=== PATIENT | female | born 1935 | race Caucasian/White ===

== ENCOUNTER 2017-01-27 05:24 | Inpatient (IN) | payer MEDICARE, OTHER ==
[2017-01-27] VITALS (23 sets, daily range): BP systolic 103–168; BP diastolic 58–86; PULSE 88–107; RESP 12–18; Ht 160 cm; Wt 81.2 kg
[~2017-01-27] VITALS: Ht 160 cm; Wt 81.2 kg
[~2017-01-27 05:24] MED LIST: BUPR150T6 PO; CEFAZOLIN 2 GM/50 ML (PMX) 50 ML IVPB ONE; LACTATED RINGER'S 1,000 ML IV* ONE; LEVO100T87 PO; LORA1TAB PO; METO25TA7 PO; NIFE60TA7 PO; PRAV40TA76 PO; RED RICE YEAST PO; [UNRECOGNIZED DRUG - OTHER] PO
[2017-01-27] MEDS ORDERED: SURGIFOAM POWDER 1 GM KIT ONE (06:35)
[2017-01-27] MEDS ORDERED: BUPIVACAINE 0.25% (MPF) 30 ML INJ ONE (06:35)
[2017-01-27] MEDS ORDERED: POLYMYXIN/BACITRACIN 1L IRRIG ONE (06:35)
[2017-01-27] MEDS ORDERED: CEFAZOLIN 1 GM INJ ONE ×2 (06:55→07:29)
[2017-01-27] MEDS ORDERED: HEPARIN 1000 UNITS/ML 10 ML INJ ONE (06:56)
[2017-01-27] MEDS ORDERED: CEPASTAT LOZENGE MT PRN (07:00)
[2017-01-27] MEDS ORDERED: ACETAMINOPHEN 325 MG TAB PO PRN (07:00)
[2017-01-27] MEDS ORDERED: BISACODYL 10 MG SUPP PR PRN (07:00)
[2017-01-27] MEDS ORDERED: ONDANSETRON 4 MG INJ IV PRN ×2 (07:00→12:00)
[2017-01-27] MEDS ORDERED: LIDOCAINE 1% (MDV) 20 ML INJ ONE (07:00)
[2017-01-27] MEDS ORDERED: HYDROmorphONE 1 MG/ML SYG IV PRN (07:00)
[2017-01-27] MEDS ORDERED: HYDROmorphONE 0.2 MG/ML PCA IV SCH (07:00)
[2017-01-27] MEDS ORDERED: CYCLOBENZAPRINE 10 MG TAB PO PRN (07:00)
[2017-01-27] MEDS ORDERED: DIPHENHYDRAMINE 25 MG CAP PO PRN (07:00)
[2017-01-27] MEDS ORDERED: PROPOFOL 200 MG INJ ONE (07:00)
[2017-01-27] MEDS ORDERED: DIPHENHYDRAMINE 50 MG INJ IV PRN ×2 (07:00→12:00)
[2017-01-27] MEDS ORDERED: ACETAMINOPHEN 1000 MG/100 ML IVPB ONE (07:00)
[2017-01-27] MEDS ORDERED: AL HYDROX/MG HYDROX/SIMETH 30 ML CUP PO PRN (07:00)
[2017-01-27] MEDS ORDERED: HYDROCODONE/APAP (10/325) TAB PO PRN (07:00)
[2017-01-27] MEDS ORDERED: ETOMIDATE 20 MG INJ ONE ×2 (07:00→07:07)
[2017-01-27] MEDS ORDERED: NALOXONE (0.4 MG/ML) INJ IV PRN (07:00)
--- NOTE | 2017-01-27 07:00 | HPN ---
Date/Time of Note Date/Time of Note DATE: 01/27/17 TIME: 07:00 Interval H&P Admission Note Pt. seen H&P reviewed: No system changes RUBINA KWOK MD Jan 27, 2017 07:00
[2017-01-27] MEDS ORDERED: ACET1TAB40 PO (07:36)
[2017-01-27] MEDS ORDERED: PHENYLephrine (100 MCG/ML) 5ML SYG ONE (07:45)
[2017-01-27] MEDS ORDERED: CEFAZOLIN 1 GM INJ ZFS ONE (08:07)
[2017-01-27] MEDS: THROMBIN 5000 UNIT VIAL ONE ×2 (08:07→10:12)
[2017-01-27] MEDS ORDERED: LIDOCAINE 2%/EPI MPF (SDV) 20 ML VIAL INJ ONE (08:07)
[2017-01-27] MEDS ORDERED: LABETALOL HCL 20MG INJ ONE (08:13)
[2017-01-27] MEDS ORDERED: DEXAMETHASONE 4 MG/ML 1 ML INJ ONE (08:21)
[2017-01-27] MEDS ORDERED: ONDANSETRON 4 MG INJ ONE (08:21)
--- NOTE | 2017-01-27 08:31 | RADRPT ---
PROCEDURE: XR Lumbar Spine. CLINICAL INDICATION: L2-3-4 LUMBAR DECOMPRESSION TECHNIQUE: A single lateral view of the lumbar spine was obtained. COMPARISON: No prior studies are available for comparison. FINDINGS: There is normal osseous mineralization. There is normal alignment. Posterior localizer pins are identified at the L2-3 and L5-S1 levels. There is severe degenerative disc disease at L5-S1 including disc space narrowing and endplate scler osis. There is also 7 mm of anterolisthesis of L5 with respect to S1. IMPRESSION: Posterior localizer pins are identified at the L2-3 and L5-S1 levels. Severe degenerative disc disease and 7 mm of anterolisthesis at L5-S1. RPTAT: EE Physician Bernardo Date Time Electronically viewed and signed by Physician Bernardo on 01/27/2017 08:31 /
--- NOTE | 2017-01-27 08:59 | RADRPT ---
PROCEDURE: XR Lumbar Spine. CLINICAL INDICATION: L2-3-4 LUMBAR DECOMPRESSION TECHNIQUE: A single lateral view of the lumbar spine was obtained. COMPARISON: No prior studies are available for comparison. FINDINGS: There is normal osseous mineralization. There is normal alignment. Posterior localizer pins are identified at the L3-4 and L4-5 levels with adjacent surgical packing m aterial. There is severe degenerative disc disease at L5-S1 including disc space narrowing and endplate scler osis as well as 7 mm of anterolisthesis of L5 with respect to S1. IMPRESSION: Posterior localizer pins are identified at the L3-4 and L4-5 levels. Severe degenerative disc disease and 7 mm of anterolisthesis at L5-S1. RPTAT: EE Physician Bernardo Date Time Electronically viewed and signed by Physician Bernardo on 01/27/2017 08:59 /
[2017-01-27] MEDS: DOCUSATE SODIUM 100 MG CAP PO SCH ×2 (09:00→20:06)
--- NOTE | 2017-01-27 09:12 | RADRPT ---
PROCEDURE: XR Lumbar Spine. CLINICAL INDICATION: L2-L4 DECOMPRESSION RM 4 O.R. TECHNIQUE: A single lateral view of the lumbar spine was obtained. COMPARISON: No prior studies are available for comparison. FINDINGS: There is normal osseous mineralization. There is normal alignment. Posterior localizer pins are identified at the L5 level. Severe degenerative disc disease and 7 mm of anterolisthesis of L5 with respect to S1 are again note d. IMPRESSION: Posterior localizer pains are identified at the L5 level. Severe degenerative disc disease and 7 mm of anterolisthesis at L5-S1. RPTAT: EE Physician Bernardo Date Time Electronically viewed and signed by Physician Bernardo on 01/27/2017 09:11 /
--- NOTE | 2017-01-27 11:09 | SIPON ---
Date/Time of Note Date/Time of Note DATE: 01/27/17 TIME: 11:08 Operative Report Preoperative Diagnosis lumbar stenosis Postoperative Diagnosis lumbar stenosis Operation/Procedure Performed L2-5 decompression Surgeon: RUBINA KWOK MD Co-Surgeon: JUAN CARLOS FELIZ PA-C Anesthesia Type: general Estimated Blood Loss: 250 - 300 ml's Specimens sp process Complications: no RUBINA KWOK MD Jan 27, 2017 11:09
[2017-01-27] MEDS ORDERED: SUGAMMADEX SODIUM 200 MG/2 ML VIAL IV ONE (11:17)
--- NOTE | 2017-01-27 11:38 | QN ---
Documentation Comment s/p lumbar decompression L2-5 patient seen in PACU arousable, comfortable moving all extremities LE and UE pulses palpable JUAN CARLOS FELIZ PA-C Jan 27, 2017 11:38
[2017-01-27] MEDS ORDERED: LABETALOL HCL 20MG INJ IV PRN (12:00)
[2017-01-27] MEDS ORDERED: MEPERIDINE 25 MG INJ IV PRN (12:00)
[2017-01-27] MEDS ORDERED: HYDROmorphONE (0.2 MG/ML) 10ML SYG IV PRN ×2 (12:00)
[2017-01-27] MEDS ORDERED: hydrALAzine 20 MG INJ IV PRN (12:00)
--- NOTE | 2017-01-27 13:04 | OPR ---
DATE OF OPERATION: 01/27/2017 PREOPERATIVE DIAGNOSES: 1. L2-3, L3-4, L4-5 stenosis. 2. Lumbosacral radiculopathy with neurogenic claudication. 3. L4-5 degenerative anterolisthesis. POSTOPERATIVE DIAGNOSES: 1. L2-3, L3-4, L4-5 stenosis. 2. Lumbosacral radiculopathy with neurogenic claudication. 3. L4-5 degenerative anterolisthesis. PROCEDURE: 1. Central decompressive laminectomy at L2-3, L3-4, L4-5 with decompression of L2, L3, L4, L5 nerve roots bilaterally. 2. Lateral localizing film x2. 3. Intraoperative neural monitoring (3 hours 15 minutes.) SURGEON: Juan Pimentel MD HOT PUNCH PRESS OPERATOR: Doris Hansen PA-C NEED FOR ANIMAL NURSE: assistant women's tennis coach was required for retraction of the neurovascular elements. OPERATIVE FINDINGS AT SURGERY: Neural monitoring at the start of the case revealed posterior tibial signal down 50 percent. This remained the same at the end. All nerve signals were normal at the start and at the end of the case. Signals from L2 to S1 were severely low bilaterally, close to 100 percent deficit. End of the case left L2, L3, L4, L5 was down 20 percent, left S1 remain low, right L2, L3, L4, L5, S1 down 30 percent. Visually good decompression was achieved, but no pulsations were seen in the thecal sac. ESTIMATED BLOOD LOSS: 300 mL with 150 mL returned via Cell Saver. DRAINS: One. SPECIMENS: Spinous process of L2, L3, L4, sent to pathology. COMPLICATIONS: None. ANESTHESIOLOGIST: Dr. Rendon. Type of anesthesia general. INDICATION FOR PROCEDURES: This is an 81-year-old female with lumbosacral radiculopathy and neurogenic claudication in the setting of severe stenosis. I recommended the above procedure. I did not recommend fusion. Preoperatively I discussed risks, benefits, alternatives, she understood, wished to proceed. I called the listhetic level L4-5 with the rudimentary L5-S1 disk level as there is a transitional segment. DESCRIPTION OF PROCEDURE: The patient was identified in the preoperative holding area, given Ancef antibiotics and taken to the operating room, where she was successfully placed under general anesthesia. Neural monitor leads were placed. Sequential compression devices were applied. Nina catheter was introduced. Neural monitoring was utilized during the procedure for 3 hours and 15 minutes to include SSEP, MEP, and EMG. This was performed by [employer] Start time was 8 a.m., closure time was 11:15 a.m. Patient was placed on the operating table in prone position on Ole frame. All bony prominences were padded. The back was prepped and draped in the usual sterile fashion. [place] were placed, lateral localizing film was obtained to confirm the correct levels. Next injected the skin with lidocaine and epinephrine. Incision was taken down through the dorsal fascia. I subperiosteally dissected the L2, L3 and L4 lamina. I then took lateral film again and confirmed the correct level. Next, I performed a central decompressive laminectomy at L2-3, L3-4 and L4-5 using a curette, Kerrison punches and rongeurs. I then decompressed the lateral recess bilaterally from L2 to L5 and then I decompressed the individual nerve roots throughout the intraspinal canal, and decompressed L2, L3, L4 and L5 bilaterally. It should be noted, there is a transitional segment and it is possible that the low segment was L5-S1, but I decompressed the lowest 3 mobile segments which were the stenotic segments based on the MRI. Once this was done, I irrigated the wound. Hemostasis achieved with bipolar cautery, Surgifoam and bone wax. Valsalva maneuver was performed and there was no leak of CSF. Blood was returned via Cell Saver. The wound was irrigated again. Retractors removed and I closed the deep fascia with number 1 Strata Fix suture. I then closed subcu tissue with 2-0 Vicryl stitch, 4-0 Monocryl closure then performed. Dermabond and sterile dressing was then applied. The patient was then awakened from anesthesia and taken to the recovery room in stable condition where an neurological examination will be performed. Lap, sponge instrument counts were normal. She will be admitted to [facility] for routine postoperative care to include pain control, antibiotics and physical therapy. Dictated By: Juan Pimentel MD /елена/rachid /Document#: [id number]
[2017-01-27] MEDS: D5W-0.45 NACL + KCL 20 MEQ 1,000 ML IV SCH ×3 (13:10→22:02)
[2017-01-27] MEDS: CEFAZOLIN 1 GM/50 ML (PMX) 50 ML IVPB SCH ×2 (16:41→22:02)
[2017-01-27] MEDS ORDERED: LORAZEPAM 1 MG TAB PO PRN (17:00)
--- NOTE | 2017-01-27 17:21 | CONS ---
Date/Time of Note Date/Time of Note DATE: 01/27/17 TIME: 17:04 Assessment/Plan Assessment/Plan Problems: (1) Aftercare following surgery Comment: S/P Central decompressive laminectomy at L2-3, L3-4, L4-5 with decompression of L2, L3, L4, L5 nerve roots bilaterally. Pain management via VP CARE MANAGEMENT pump at this time. Rehab and PT per Dr. Pimentel. (2) Mixed hyperlipidemia Status: Chronic Comment: continue statin (3) Hypothyroidism Status: Chronic Comment: continue levothyroxine (4) Anxiety disorder Status: Chronic Comment: continue benzodiazepine and bupoprion (5) Gastro-esophageal reflux disease without esophagitis Status: Chronic Comment: continue PPI (6) Essential (primary) hypertension Status: Chronic Comment: Decent control. Will resume antihypertensive agents. Additional Assessment/Plan Clinically stable after surgery. Consultation Date/Type/Reason Admit Date/Time Jan 27, 2017 at 05:24 Date of Consultation: Jan 27, 2017 Type of Consultation: Internal Medicine Reason for Consultation Post operative medical management of internal medicine issues. Referring Provider: RUBINA PIMENTEL MD Hx of Present Illness 81 year old woman with history of severe peripheral neuropathy from L2-3, L3-4, L4-5 stenosis, lumboosacral radiculopathy with neurogenic claudication and L4-5 degenerative anterolisthesis. She is currently s/p central decompressive laminectomy at L2-3, L3-4, L4-5 with decompression of L2, L3, L4, L5 nerve roots bilaterally. Complain of some moderate post operative pain. Constitutional: no complaints Eyes: no complaints ENT: no complaints Respiratory: no complaints Cardiovascular: no complaints Gastrointestinal: no complaints Musculoskeletal: neck pain, other Neurologic: no complaints Endocrine: no complaints Lymphatic: no complaints Psychological: no complaints Immunologic: no complaints Past Medical History Medical History: GERD, high cholesterol, hypertension, hypothyroid, other ( Aortic stenosis, Aortic regurgitaion atherosclerotic disease) Past Surgical History Past Surgical Hx: appendectomy (esophageal fundoplasty, hand surgery, hysterectomy, TKR), other Family History Significant Family History: no pertinent family hx Social History Alcohol Use: none Smoking Status: Former smoker Drug Use: none Other 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 Lives with adult children Exam/Review of Systems Vital Signs Vitals Vital Signs Date Time Temp Pulse Resp B/P Pulse Ox O2 Delivery O2 Flow Rate FiO2 9//17 14:43 97.8 94 18 152/74 100 01/27/17 12:39 Nasal Cannula 2.0 Exam Constitutional: alert, oriented, well developed Psych: no complaints Head: normocephalic Eyes: EOMI, PERRL, nl conjunctiva ENMT: nl external ears & nose, other (edentulous) Neck: supple Respiratory: clear to auscultation, normal air movement Cardiovascular: regular rate and rhythm, systolic murmur Gastrointestinal: soft Musculoskeletal: nl extremities to inspection Extremities: normal pulses Neurological: nl mental status, nl speech, nl strength Skin: nl turgor, rash or lesions Lymph: nl lymph nodes Medications Medications Current Medications Potassium Chloride/Dextrose/ Sod Cl (D5-1/2ns + KCl 20 Meq) 1,000 ml @ 100 mls/ hr Q10H IV Last administered on 01/27/17 13:10; Admin Dose 100 MLS/HR; Start at 07:00 Acetaminophen/ Hydrocodone Bitart ([place] (10/325)) 1 tab Q4H PRN PO PAIN LEVEL 1-5; Start 01/27/17 at 07:00 Acetaminophen/ Hydrocodone Bitart ([place] (10/325)) 2 tab Q4H PRN PO PAIN LEVEL 6-10; Start 01/27/17 at 07:00 Hydromorphone HCl 0.2 mg 0.2 mg Q1H PRN IV BREAKTHROUGH PAIN; Start 01/27/17 at 07:00 Cefazolin Sodium (Ancef 1 Gm/50 ml (Pmx)) 50 ml @ 100 mls/hr Q8H IVPB Last administered on 01/27/17 16:41; Admin Dose 100 MLS/HR; Start 01/27/17 at 15:00; Stop 01/28/17 at 07:29 Ondansetron HCl (Zofran Inj) 4 mg Q6H PRN IV NAUSEA AND/OR VOMITING Last administered on 01/27/17 12:06; Admin Dose 4 MG; Start 01/27/17 at 07:00 Bisacodyl (Dulcolax Supp) 10 mg DAILY PRN PA CONSTIPATION; Start 01/27/17 at 07: 00 Docusate Sodium (Colace) 100 mg BID PO ; Start 01/27/17 at 09:00 Pantoprazole (Protonix Iv) 40 mg DAILY@06 IV ; Start 01/28/17 at 06:00 Al Hydrox/Mg Hydrox/Simethicone (Mag-Al Plus) 15 ml Q6H PRN PO CONSTIPATION/ DYSPEPSIA; Start 01/27/17 at 07:00 Acetaminophen (Tylenol Tab) 650 mg Q4H PRN PO RICHTER OR TEMP GREATER THAN 101.3F; Start 01/27/17 at 07:00 Cyclobenzaprine HCl (Flexeril) 5 mg TID PRN PO MUSCLE SPASMS; Start 01/27/17 at 07:00 Phenol (Cepastat Lozenge) 1 lozenge PRN PRN MT SORE THROAT; Start 01/27/17 at 07 :00 Diphenhydramine HCl (Benadryl) 25 mg Q6H PRN PO ITCHING; Start 01/27/17 at 07:00 Diphenhydramine HCl (Benadryl) 25 mg Q6H PRN IV ITCHING; Start 01/27/17 at 07:00 Naloxone HCl (Narcan) 0.2 mg Q2M PRN IV RR 8 BREATHS/MIN OR LESS; Start at 07:00 Hydromorphone HCl (Dilaudid VP CARE MANAGEMENT) VP CARE MANAGEMENT to be started in PACU Q4PCA IV Last administered on 01/27/17t 12:24; Admin Dose 6 MG; Start 01/27/17 at 07:00 Miscellaneous Information 1. Hold VP CARE MANAGEMENT at 1,000... VP CARE MANAGEMENT IV ; Start 01/27/17 at 07: 00 MIKHAIL PICHARDO MD Jan 27, 2017 17:14
[2017-01-27] MEDS: ATORVASTATIN 10 MG TAB PO SCH (20:06)
[2017-01-28] VITALS (7 sets, daily range): BP systolic 94–132; BP diastolic 50–66; PULSE 75–89; RESP 18–20
[2017-01-28 05:34] LABS: BASOPHILS % 0.2 % (0.0-2.0); EOSINOPHILS % 0.4 % (0.0-7.0); HEMATOCRIT 29.6 % (37.0-47.0); HEMOGLOBIN 9.4 g/dl (12.0-16.0); LYMPHOCYTES # 1.2 10^3/ul (0.8-2.9); LYMPHOCYTES % 10.6 % (15.0-51.0); MEAN CORPUSCULAR HEMOGLOBIN 28.7 pg (29.0-33.0); MEAN CORPUSCULAR HGB CONC 31.8 g/dl (32.0-37.0); MEAN CORPUSCULAR VOLUME 90.2 fl (82.0-101.0); MEAN PLATELET VOLUME 10.4 fl (7.4-10.4); MONOCYTES % 9.1 % (0.0-11.0); NEUTROPHILS % 79.3 % (39.0-77.0); PLATELET COUNT 235 10^3/UL (140-415); RED BLOOD COUNT 3.28 10^6/ul (4.20-5.40); RED CELL DISTRIBUTION WIDTH 14.6 % (11.5-14.5); WHITE BLOOD COUNT 11.2 10^3/ul (4.8-10.8)
[2017-01-28] MEDS: PANTOPRAZOLE (EC) 40 MG TAB PO SCH (05:40)
[2017-01-28] MEDS: CEFAZOLIN 1 GM/50 ML (PMX) 50 ML IVPB SCH (05:40)
[2017-01-28] MEDS: D5W-0.45 NACL + KCL 20 MEQ 1,000 ML IV SCH ×3 (05:46→22:20)
[2017-01-28] MEDS ORDERED: PANTOPRAZOLE 40 MG INJ IV SCH (06:00)
[2017-01-28] MEDS: LEVOTHYROXINE 100 MCG TAB PO SCH (06:01)
[2017-01-28 06:14] LABS: CALCIUM 8.4 mg/dl (8.4-10.2); CREATININE 0.67 mg/dl (0.44-1.00); MAGNESIUM 1.8 mg/dl (1.7-2.5)
[2017-01-28] MEDS: DOCUSATE SODIUM 100 MG CAP PO SCH ×2 (08:13→20:08)
[2017-01-28] MEDS: BUPROPION (XL) 150 MG TAB PO SCH (08:13)
[2017-01-28] MEDS: METOPROLOL (XL) 25 MG TAB PO SCH (08:14)
--- NOTE | 2017-01-28 12:53 | PN ---
Date/Time of Note Date/Time of Note DATE: 01/28/17 TIME: 12:52 Assessment/Plan Lines/Catheters IV Catheter Type (from Nrsg): Saline Lock Nina in Place (from Nrsg): Yes Assessment/Plan Assessment/Plan s/p lumbar decompression cont routine care Subjective 24 Hr Interval Summary doing well. improved leg pain Exam/Review of Systems Vital Signs Vitals Vital Signs Date Time Temp Pulse Resp B/P Pulse Ox O2 Delivery O2 Flow Rate FiO2 01/28/17 09:00 16 01/28/17 08:15 Nasal Cannula 2.0 01/28/17 08:03 98.1 78 132/66 99 Intake and Output 01/27/17 01/27/17 01/28/17 15:00 23:00 07:00 Intake Total 2125 ml 750 ml 1450 ml Output Total 1200 ml 160 ml 1710 ml Balance 925 ml 590 ml -260 ml Exam Free Text/Dictation nvi Results Result Diagram: 01/28/17 0439 01/28/17 0439 RUBINA KWOK MD Jan 28, 2017 12:53
[2017-01-28 14:23] LABS: HEMATOCRIT 29.3 % (37.0-47.0); HEMOGLOBIN 9.7 g/dl (12.0-16.0)
--- NOTE | 2017-01-28 16:59 | CONS ---
Date/Time of Note Date/Time of Note DATE: 01/28/17 TIME: 16:52 Assessment/Plan Assessment/Plan Problems: (1) Aftercare following surgery Comment: Doing well postop day #1. Continue physical therapy. Suspect patient will require long-term rehab. 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 Comment: Hopeful to improve after surgical intervention (5) Hypothyroidism Status: Chronic Comment: Continue levothyroxine (6) Mixed hyperlipidemia Status: Chronic Comment: Continue statin (7) Major depressive disorder, recurrent, moderate Status: Chronic Comment: Continue antidepressant therapy (8) Essential (primary) hypertension Status: Chronic Comment: Continue BP regimen (9) Gastro-esophageal reflux disease without esophagitis Status: Chronic Comment: Continue PPI and add Tums as needed (10) Type 2 diabetes mellitus with other specified complication Status: Chronic Comment: Diet-controlled. Will monitor Consultation Date/Type/Reason Admit Date/Time Jan 27, 2017 at 05:24 Initial Consult Date 01/27/17 Type of Consultation: Internal Medicine Reason for Consultation Medical management Referring Provider: RUBINA KWOK MD 24 HR Interval Summary Constitutional: improved, no complaints Detailed Summary Respiratory: no complaints Cardiovascular: no complaints Gastrointestinal: pain (Wants Tums) Genitourinary: no complaints Musculoskeletal: back pain (Hurts but not as bad as she thought it would. Ambulating with physical therapy.) Neurologic: no complaints Exam/Review of Systems Vital Signs Vitals VS - Last 72 Hours, by Label Date Time Temp Pulse Resp B/P Pulse Ox O2 Delivery O2 Flow Rate FiO2 01/28/17 16:00 104/55 01/28/17 14:31 98.2 78 20 94/50 99 01/28/17 14:10 75 94/50 01/28/17 13:00 16 01/28/17 09:00 16 01/28/17 08:15 16 01/28/17 08:15 Nasal Cannula 2.0 01/28/17 08:03 98.1 78 20 132/66 99 01/28/17 05:20 98.1 89 18 125/59 96 Nasal Cannula 2.0 01/28/17 00:49 98.1 93 19 123/62 93 01/27/17 21:02 Nasal Cannula 2.0 01/27/17 19:10 98.0 97 18 128/58 94 01/27/17 16:00 98.0 92 16 140/70 98 Nasal Cannula 2.0 01/27/17 15:00 98.2 96 16 150/71 99 Nasal Cannula 2.0 01/27/17 14:43 97.8 94 18 152/74 100 01/27/17 14:30 98.0 98 16 168/83 100 Nasal Cannula 2.0 01/27/17 14:00 98.1 107 16 137/82 99 Nasal Cannula 2.0 01/27/17 13:45 98.0 89 16 139/65 98 Nasal Cannula 2.0 01/27/17 13:30 Nasal Cannula 2.0 01/27/17 13:30 97.9 89 16 142/75 98 Nasal Cannula 2.0 01/27/17 13:15 98.0 96 16 143/70 99 Nasal Cannula 2.0 01/27/17 13:00 98.0 99 16 147/65 100 Nasal Cannula 2.0 01/27/17 12:39 92 14 149/80 99 Nasal Cannula 2.0 01/27/17 12:34 90 12 148/82 99 Nasal Cannula 2.0 01/27/17 12:29 94 14 151/78 98 Nasal Cannula 2.0 01/27/17 12:24 22 01/27/17 12:24 90 14 150/76 99 Nasal Cannula 2.0 01/27/17 12:19 88 14 146/72 98 Nasal Cannula 2.0 01/27/17 12:14 90 14 142/72 95 Nasal Cannula 2.0 01/27/17 12:09 88 14 143/69 95 Nasal Cannula 2.0 01/27/17 12:04 88 14 147/72 95 Nasal Cannula 2.0 01/27/17 11:59 90 14 150/69 95 Nasal Cannula 2.0 01/27/17 11:54 92 12 149/78 95 Nasal Cannula 2.0 01/27/17 11:49 97.8 01/27/17 11:49 92 12 103/81 96 Nasal Cannula 2.0 01/27/17 11:44 98.3 90 12 136/81 100 Nasal Cannula 2.0 01/27/17 06:35 98.4 97 16 108/86 97 Room Air Vital Signs Date Time Temp Pulse Resp B/P Pulse Ox O2 Delivery O2 Flow Rate FiO2 01/28/17 16:00 104/55 01/28/17 14:31 98.2 78 20 99 01/28/17 08:15 Nasal Cannula 2.0 Intake and Output 01/27/17 01/27/17 01/28/17 15:00 23:00 07:00 Intake Total 2125 ml 750 ml 1450 ml Output Total 1200 ml 160 ml 1710 ml Balance 925 ml 590 ml -260 ml Exam Constitutional: alert, frail, obese, oriented Psych: nl mood/affect, no complaints Respiratory: clear to auscultation, normal air movement Cardiovascular: nl pulses, regular rate and rhythm, No edema, No murmurs/extra sounds, No rub Gastrointestinal: bowel sounds, nl liver, spleen, non-tender, soft, No mass, No rebound or guarding Musculoskeletal: nl extremities to inspection Extremities: normal pulses, No clubbing, No cyanosis, No edema Neurological: SPECIAL INVESTIGATION UNIT INVESTIGATOR II-XII intact, nl mental status, nl speech, nl strength Results Result Diagram: 01/28/17 1413 01/28/17 0439 Results 24 hrs Laboratory Tests Test 01/28/17 04:39 01/28/17 14:13 White Blood Count 11.2 H Red Blood Count 3.28 L Hemoglobin 9.4 L 9.7 L Hematocrit 29.6 L 29.3 L Mean Corpuscular Volume 90.2 Mean Corpuscular Hemoglobin 28.7 L Mean Corpuscular Hemoglobin Concent 31.8 L Red Cell Distribution Width 14.6 H Platelet Count 235 Mean Platelet Volume 10.4 Neutrophils % 79.3 H Lymphocytes % 10.6 L Monocytes % 9.1 Eosinophils % 0.4 Basophils % 0.2 Nucleated Red Blood Cells % 0.0 Neutrophils # (Manual) 8.9 H Lymphocytes # 1.2 Monocytes # 1.0 H Eosinophils # 0.0 Basophils # 0.0 Nucleated Red Blood Cells # 0.0 Sodium Level 140 Potassium Level 4.0 Chloride Level 108 Carbon Dioxide Level 28 Anion Gap 8 Blood Urea Nitrogen 11 Creatinine 0.67 Glucose Level 120 Calcium Level 8.4 Magnesium Level 1.8 Medications Medications Current Medications Potassium Chloride/Dextrose/ Sod Cl (D5-1/2ns + KCl 20 Meq) 1,000 ml @ 100 mls/ hr Q10H IV Last administered on 01/28/17 05:46; Admin Dose 100 MLS/HR; Start at 07:00 Acetaminophen/ Hydrocodone Bitart ([place] (10/325)) 1 tab Q4H PRN PO PAIN LEVEL 1-5; Start 01/27/17 at 07:00 Acetaminophen/ Hydrocodone Bitart ([place] (10/325)) 2 tab Q4H PRN PO PAIN LEVEL 6-10; Start 01/27/17 at 07:00 Hydromorphone HCl (Dilaudid) 0.2 mg Q1H PRN IV BREAKTHROUGH PAIN; Start at 07:00 Ondansetron HCl (Zofran Inj) 4 mg Q6H PRN IV NAUSEA AND/OR VOMITING Last administered on 01/27/17 12:06; Admin Dose 4 MG; Start 01/27/17 at 07:00 Bisacodyl (Dulcolax Supp) 10 mg DAILY PRN CO CONSTIPATION; Start 01/27/17 at 07: 00 Docusate Sodium (Colace) 100 mg BID PO Last administered on 01/28/17 08:13; Admin Dose 100 MG; Start 01/27/17 at 09:00 Al Hydrox/Mg Hydrox/Simethicone (Mag-Al Plus) 15 ml Q6H PRN PO CONSTIPATION/ DYSPEPSIA; Start 01/27/17 at 07:00 Acetaminophen (Tylenol Tab) 650 mg Q4H PRN PO RICHTER OR TEMP GREATER THAN 101.3F; Start 01/27/17 at 07:00 Cyclobenzaprine HCl (Flexeril) 5 mg TID PRN PO MUSCLE SPASMS; Start 01/27/17 at 07:00 Phenol (Cepastat Lozenge) 1 lozenge PRN PRN MT SORE THROAT; Start 01/27/17 at 07 :00 Diphenhydramine HCl (Benadryl) 25 mg Q6H PRN PO ITCHING; Start 01/27/17 at 07:00 Diphenhydramine HCl (Benadryl) 25 mg Q6H PRN IV ITCHING; Start 01/27/17 at 07:00 Naloxone HCl (Narcan) 0.2 mg Q2M PRN IV RR 8 BREATHS/MIN OR LESS; Start at 07:00 Hydromorphone HCl (Dilaudid FACSIMILE OPERATOR) FACSIMILE OPERATOR to be started in PACU Q4PCA IV Last administered on 01/27/17 12:24; Admin Dose 6 MG; Start 01/27/17 at 07:00 Miscellaneous Information 1. Hold FACSIMILE OPERATOR at 1,000... FACSIMILE OPERATOR IV ; Start 01/27/17 at 07: 00 Bupropion HCl (Wellbutrin Xl) 150 mg DAILY PO Last administered on 01/28/17 08: 13; Admin Dose 150 MG; Start 01/28/17 at 09:00 Lorazepam (Ativan) 2 mg BID PRN PO ANXIETY; Start 01/27/17 at 17:00 Metoprolol Succinate (Toprol Xl) 25 mg DAILY PO Last administered on 01/28/17 08:14; Admin Dose 25 MG; Start 01/28/17 at 09:00 Atorvastatin Calcium (Lipitor) 10 mg DAILY@21 PO Last administered on 01/27/17 20:06; Admin Dose 10 MG; Start 01/27/17 at 21:00 Pantoprazole (Protonix Tab) 40 mg DAILY@06 PO Last administered on 01/28/17 05: 40; Admin Dose 40 MG; Start 01/28/17 at 06:00; Status Future hold WALTER MELISSA MD Jan 28, 2017 16:59
[2017-01-28] MEDS ORDERED: CALCIUM CARBONATE 500 MG CHEW TAB PO PRN (17:00)
[2017-01-28] MEDS: ATORVASTATIN 10 MG TAB PO SCH (20:08)
[2017-01-29 02:00] VITALS: BP 126/60; RESP 18
[2017-01-29] MEDS: PANTOPRAZOLE (EC) 40 MG TAB PO SCH (05:23)
[2017-01-29 05:31] LABS: BASOPHILS % 0.3 % (0.0-2.0); EOSINOPHILS # 0.2 10^3/ul (0.0-0.5); EOSINOPHILS % 1.8 % (0.0-7.0); HEMATOCRIT 30.2 % (37.0-47.0); HEMOGLOBIN 9.6 g/dl (12.0-16.0); LYMPHOCYTES # 1.1 10^3/ul (0.8-2.9); LYMPHOCYTES % 10.4 % (15.0-51.0); MEAN CORPUSCULAR HEMOGLOBIN 29.4 pg (29.0-33.0); MEAN CORPUSCULAR HGB CONC 31.8 g/dl (32.0-37.0); MEAN CORPUSCULAR VOLUME 92.4 fl (82.0-101.0); MEAN PLATELET VOLUME 10.7 fl (7.4-10.4); MONOCYTE # 1.2 10^3/ul (0.3-0.9); MONOCYTES % 11.1 % (0.0-11.0); PLATELET COUNT 225 10^3/UL (140-415); RED BLOOD COUNT 3.27 10^6/ul (4.20-5.40); RED CELL DISTRIBUTION WIDTH 14.6 % (11.5-14.5); WHITE BLOOD COUNT 10.9 10^3/ul (4.8-10.8)
[2017-01-29 05:55] LABS: CALCIUM 8.6 mg/dl (8.4-10.2); CREATININE 0.6 mg/dl (0.44-1.00); MAGNESIUM 1.8 mg/dl (1.7-2.5); POTASSIUM 4.3 mmol/L (3.5-5.1)
[2017-01-29] MEDS: LEVOTHYROXINE 100 MCG TAB PO SCH (06:02)
[2017-01-29] MEDS: D5W-0.45 NACL + KCL 20 MEQ 1,000 ML IV SCH ×3 (06:02→19:00)
--- NOTE | 2017-01-29 07:55 | PN ---
Date/Time of Note Date/Time of Note DATE: 01/29/17 TIME: 07:54 Assessment/Plan Lines/Catheters IV Catheter Type (from Nrs): Peripheral IV Lambert in Place (from Nrs): Yes Assessment/Plan Assessment/Plan s/p lumbar decompression d/c manager data lambert and drain acute rehab pending Subjective 24 Hr Interval Summary improving Exam/Review of Systems Vital Signs Vitals Vital Signs Date Time Temp Pulse Resp B/P Pulse Ox O2 Delivery O2 Flow Rate FiO2 01/29/17 05:00 18 01/29/17 02:00 98.4 86 126/60 93 01/28/17 08:15 Nasal Cannula 2.0 Intake and Output 01/28/17 01/28/17 01/29/17 15:00 23:00 07:00 Intake Total 1880 ml 2150 ml Output Total 1025 ml 1870 ml Balance 855 ml 280 ml Exam Free Text/Dictation nvi Results Result Diagram: 01/29/17 0444 01/29/17 0444 RUBINA KWOK MD Jan 29, 2017 07:55
[2017-01-29 07:59] VITALS: BP 129/61; RESP 16
[2017-01-29] MEDS: BUPROPION (XL) 150 MG TAB PO SCH (09:49)
[2017-01-29] MEDS: HYDROCODONE/APAP (10/325) TAB PO PRN ×2 (09:49→19:07)
[2017-01-29] MEDS: DOCUSATE SODIUM 100 MG CAP PO SCH ×2 (09:50→20:24)
[2017-01-29] MEDS: METOPROLOL (XL) 25 MG TAB PO SCH (09:50)
[2017-01-29 14:45] VITALS: BP 129/68; RESP 18
--- NOTE | 2017-01-29 18:30 | CONS ---
Date/Time of Note Date/Time of Note DATE: 01/29/17 TIME: 18:27 Assessment/Plan Assessment/Plan Problems: (1) Essential (primary) hypertension Status: Chronic Comment: BP controlled, continue current medical regimen (2) Mixed hyperlipidemia Status: Chronic Comment: Continue statin (3) Hypothyroidism Status: Chronic Comment: Continue levothyroxine Qualifiers: Hypothyroidism type: acquired Qualified Code: E03.9 - Acquired hypothyroidism (4) Gastro-esophageal reflux disease without esophagitis Status: Chronic Comment: Continue PPI (5) Abnormality of gait and mobility Status: Chronic Comment: Hopefully will resolve following spinal surgery (6) History of falling Status: Chronic Comment: Hopefully will resolve following spinal surgery (7) Aftercare following surgery Comment: Doing fair on postop day #2. Expect upcoming transfer to acute rehab unit once able to urinate. Consultation Date/Type/Reason Admit Date/Time Jan 27, 2017 at 05:24 Initial Consult Date 01/27/17 Type of Consultation: Internal Medicine Reason for Consultation Medical management Referring Provider: RUBINA KWOK MD 24 HR Interval Summary Constitutional: no complaints Detailed Summary Respiratory: no complaints Cardiovascular: no complaints Gastrointestinal: no complaints Genitourinary: other (Unable to pass urine) Musculoskeletal: back pain (Able to ambulate but only a few steps around her room and to the commode) Neurologic: no complaints Exam/Review of Systems Vital Signs Vitals VS - Last 72 Hours, by Label Date Time Temp Pulse Resp B/P Pulse Ox O2 Delivery O2 Flow Rate FiO2 01/29/17 14:45 98.4 85 18 129/68 97 01/29/17 07:59 99.1 87 16 129/61 94 01/29/17 05:00 18 01/29/17 02:00 98.4 86 18 126/60 93 01/29/17 01:00 18 01/28/17 21:00 18 01/28/17 20:58 98.0 81 18 112/56 97 01/28/17 16:58 16 01/28/17 16:00 104/55 01/28/17 14:31 98.2 78 20 94/50 99 01/28/17 14:10 75 94/50 01/28/17 13:00 16 01/28/17 09:00 16 01/28/17 08:15 16 01/28/17 08:15 Nasal Cannula 2.0 01/28/17 08:03 98.1 78 20 132/66 99 01/28/17 05:20 98.1 89 18 125/59 96 Nasal Cannula 2.0 01/28/17 00:49 98.1 93 19 123/62 93 01/27/17 21:02 Nasal Cannula 2.0 01/27/17 19:10 98.0 97 18 128/58 94 01/27/17 16:00 98.0 92 16 140/70 98 Nasal Cannula 2.0 01/27/17 15:00 98.2 96 16 150/71 99 Nasal Cannula 2.0 01/27/17 14:43 97.8 94 18 152/74 100 01/27/17 14:30 98.0 98 16 168/83 100 Nasal Cannula 2.0 01/27/17 14:00 98.1 107 16 137/82 99 Nasal Cannula 2.0 01/27/17 13:45 98.0 89 16 139/65 98 Nasal Cannula 2.0 01/27/17 13:30 Nasal Cannula 2.0 01/27/17 13:30 97.9 89 16 142/75 98 Nasal Cannula 2.0 01/27/17 13:15 98.0 96 16 143/70 99 Nasal Cannula 2.0 01/27/17 13:00 98.0 99 16 147/65 100 Nasal Cannula 2.0 01/27/17 12:39 92 14 149/80 99 Nasal Cannula 2.0 01/27/17 12:34 90 12 148/82 99 Nasal Cannula 2.0 01/27/17 12:29 94 14 151/78 98 Nasal Cannula 2.0 01/27/17 12:24 22 01/27/17 12:24 90 14 150/76 99 Nasal Cannula 2.0 01/27/17 12:19 88 14 146/72 98 Nasal Cannula 2.0 01/27/17 12:14 90 14 142/72 95 Nasal Cannula 2.0 01/27/17 12:09 88 14 143/69 95 Nasal Cannula 2.0 01/27/17 12:04 88 14 147/72 95 Nasal Cannula 2.0 01/27/17 11:59 90 14 150/69 95 Nasal Cannula 2.0 01/27/17 11:54 92 12 149/78 95 Nasal Cannula 2.0 01/27/17 11:49 97.8 01/27/17 11:49 92 12 103/81 96 Nasal Cannula 2.0 01/27/17 11:44 98.3 90 12 136/81 100 Nasal Cannula 2.0 01/27/17 06:35 98.4 97 16 108/86 97 Room Air Vital Signs Date Time Temp Pulse Resp B/P Pulse Ox O2 Delivery O2 Flow Rate FiO2 01/29/17 14:45 98.4 85 18 129/68 97 01/28/17 08:15 Nasal Cannula 2.0 Intake and Output 01/28/17 01/28/17 01/29/17 15:00 23:00 07:00 Intake Total 1880 ml 2150 ml Output Total 1025 ml 1870 ml Balance 855 ml 280 ml Exam Constitutional: alert, obese, oriented Psych: nl mood/affect, no complaints Respiratory: clear to auscultation, normal air movement Cardiovascular: nl pulses, regular rate and rhythm, No edema, No murmurs/extra sounds, No rub Gastrointestinal: bowel sounds, nl liver, spleen, non-tender, soft, No mass, No rebound or guarding Musculoskeletal: nl extremities to inspection Extremities: normal pulses, No clubbing, No cyanosis, No edema Neurological: STATION INSPECTOR II-XII intact, nl mental status, nl speech, nl strength Results Result Diagram: 01/29/1744301/29/17443 Results 24 hrs Laboratory Tests Test 01/29/17 04:44 White Blood Count 10.9 H Red Blood Count 3.27 L Hemoglobin 9.6 L Hematocrit 30.2 L Mean Corpuscular Volume 92.4 Mean Corpuscular Hemoglobin 29.4 Mean Corpuscular Hemoglobin Concent 31.8 L Red Cell Distribution Width 14.6 H Platelet Count 225 Mean Platelet Volume 10.7 H Neutrophils % 76.0 Lymphocytes % 10.4 L Monocytes % 11.1 H Eosinophils % 1.8 Basophils % 0.3 Nucleated Red Blood Cells % 0.0 Neutrophils # (Manual) 8.3 H Lymphocytes # 1.1 Monocytes # 1.2 H Eosinophils # 0.2 Basophils # 0.0 Nucleated Red Blood Cells # 0.0 Sodium Level 138 Potassium Level 4.3 Chloride Level 106 Carbon Dioxide Level 30 Anion Gap 6 L Blood Urea Nitrogen 10 Creatinine 0.60 Glucose Level 124 Calcium Level 8.6 Magnesium Level 1.8 Medications Medications Current Medications Potassium Chloride/Dextrose/ Sod Cl (D5-1/2ns + KCl 20 Meq) 1,000 ml @ 100 mls/ hr Q10H IV Last administered on 01/29/17 06:02; Admin Dose 100 MLS/HR; Start at 07:00 Acetaminophen/ Hydrocodone Bitart ([place] (10/325)) 1 tab Q4H PRN PO PAIN LEVEL 1-5 Last administered on 01/29/17 09:49; Admin Dose 1 TAB; Start 01/27/17 at 07: 00 Acetaminophen/ Hydrocodone Bitart ([place] (10/325)) 2 tab Q4H PRN PO PAIN LEVEL 6-10; Start 01/27/17 at 07:00 Hydromorphone HCl (Dilaudid) 0.2 mg Q1H PRN IV BREAKTHROUGH PAIN; Start at 07:00 Ondansetron HCl (Zofran Inj) 4 mg Q6H PRN IV NAUSEA AND/OR VOMITING Last administered on 01/27/17 12:06; Admin Dose 4 MG; Start 01/27/17 at 07:00 Bisacodyl (Dulcolax Supp) 10 mg DAILY PRN [place] CONSTIPATION; Start 01/27/17 at 07: 00 Docusate Sodium (Colace) 100 mg BID PO Last administered on 01/29/17 09:50; Admin Dose 100 MG; Start 01/27/17 at 09:00 Al Hydrox/Mg Hydrox/Simethicone (Mag-Al Plus) 15 ml Q6H PRN PO CONSTIPATION/ DYSPEPSIA; Start 01/27/17 at 07:00 Acetaminophen (Tylenol Tab) 650 mg Q4H PRN PO RICHTER OR TEMP GREATER THAN 101.3F; Start 01/27/17 at 07:00 Cyclobenzaprine HCl (Flexeril) 5 mg TID PRN PO MUSCLE SPASMS; Start 01/27/17 at 07:00 Phenol (Cepastat Lozenge) 1 lozenge PRN PRN [place] SORE THROAT; Start 01/27/17 at 07 :00 Diphenhydramine HCl (Benadryl) 25 mg Q6H PRN PO ITCHING; Start 01/27/17 at 07:00 Diphenhydramine HCl (Benadryl) 25 mg Q6H PRN IV ITCHING; Start 01/27/17 at 07:00 Naloxone HCl (Narcan) 0.2 mg Q2M PRN IV RR 8 BREATHS/MIN OR LESS; Start at 07:00 Hydromorphone HCl (Dilaudid ROUGHER MACHINE OPERATOR) ROUGHER MACHINE OPERATOR to be started in PACU Q4PCA IV Last administered on 01/27/17 12:24; Admin Dose 6 MG; Start 01/27/17 at 07:00 Miscellaneous Information 1. Hold ROUGHER MACHINE OPERATOR at 1,000... ROUGHER MACHINE OPERATOR IV ; Start 01/27/17 at 07: 00 Bupropion HCl (Wellbutrin Xl) 150 mg DAILY PO Last administered on 01/29/17 09: 49; Admin Dose 150 MG; Start 01/28/17 at 09:00 Lorazepam (Ativan) 2 mg BID PRN PO ANXIETY; Start 01/27/17 at 17:00 Metoprolol Succinate (Toprol Xl) 25 mg DAILY PO Last administered on 01/29/17 09:50; Admin Dose 25 MG; Start 01/28/17 at 09:00 Atorvastatin Calcium (Lipitor) 10 mg DAILY@21 PO Last administered on 01/28/17 20:08; Admin Dose 10 MG; Start 01/27/17 at 21:00 Pantoprazole (Protonix Tab) 40 mg DAILY@06 PO Last administered on 01/29/17 05: 23; Admin Dose 40 MG; Start 01/28/17 at 06:00; Status Future hold Calcium Carbonate (Tums) 500 mg QID PRN PO HEARTBURN Last administered on 17:21; Admin Dose 500 MG; Start 01/28/17 at 17:00 WALTER MELISSA MD Jan 29, 2017 18:30
[2017-01-29 19:05] VITALS: BP 143/66; RESP 18
[2017-01-29] MEDS: ATORVASTATIN 10 MG TAB PO SCH (20:24)
[2017-01-30] MEDS: HYDROCODONE/APAP (10/325) TAB PO PRN ×3 (00:41→15:02)
[2017-01-30 02:05] VITALS: BP 130/59; RESP 18
[2017-01-30] MEDS: D5W-0.45 NACL + KCL 20 MEQ 1,000 ML IV SCH ×2 (05:00→15:00)
[2017-01-30 05:07] LABS: BASOPHILS % 0.3 % (0.0-2.0); EOSINOPHILS # 0.2 10^3/ul (0.0-0.5); EOSINOPHILS % 2.4 % (0.0-7.0); HEMOGLOBIN 8.9 g/dl (12.0-16.0); LYMPHOCYTES % 10.1 % (15.0-51.0); MEAN CORPUSCULAR HEMOGLOBIN 28.7 pg (29.0-33.0); MEAN CORPUSCULAR HGB CONC 31.8 g/dl (32.0-37.0); MEAN CORPUSCULAR VOLUME 90.3 fl (82.0-101.0); MEAN PLATELET VOLUME 10.5 fl (7.4-10.4); MONOCYTE # 1.1 10^3/ul (0.3-0.9); MONOCYTES % 11.4 % (0.0-11.0); NEUTROPHILS % 75.3 % (39.0-77.0); PLATELET COUNT 208 10^3/UL (140-415); RED CELL DISTRIBUTION WIDTH 14.6 % (11.5-14.5); WHITE BLOOD COUNT 9.4 10^3/ul (4.8-10.8)
[2017-01-30 06:01] LABS: CALCIUM 8.7 mg/dl (8.4-10.2); CREATININE 0.6 mg/dl (0.44-1.00); MAGNESIUM 1.9 mg/dl (1.7-2.5); POTASSIUM 3.9 mmol/L (3.5-5.1)
[2017-01-30] MEDS: LEVOTHYROXINE 100 MCG TAB PO SCH (06:01)
[2017-01-30] MEDS: PANTOPRAZOLE (EC) 40 MG TAB PO SCH (06:01)
[2017-01-30 08:08] VITALS: BP 133/65; RESP 18
[2017-01-30] MEDS: DOCUSATE SODIUM 100 MG CAP PO SCH (09:03)
[2017-01-30] MEDS: BUPROPION (XL) 150 MG TAB PO SCH (09:03)
[2017-01-30] MEDS: METOPROLOL (XL) 25 MG TAB PO SCH (09:03)
[2017-01-30 15:07] VITALS: BP 140/70; RESP 18
== END 2017-01-30 17:50 | DRG 515 ==
LOC: REC 05:24 → MS1 12:56
PROVIDERS: ADMIT Specialist; ATTEND Specialist
PROC: 01NB0ZZ Release Lumbar Nerve, Open Approach (ICD-10-PCS; principal; 2017-01-27 07:00)
DX: M48.06 Spinal stenosis, lumbar region (principal); G95.19 Other vascular myelopathies; E11.42 Type 2 diabetes mellitus with diabetic polyneuropathy; F33.1 Major depressive disorder, recurrent, moderate; M43.16 Spondylolisthesis, lumbar region; M54.17 Radiculopathy, lumbosacral region; I35.2 Nonrheumatic aortic (valve) stenosis with insufficiency; E78.2 Mixed hyperlipidemia; F41.9 Anxiety disorder, unspecified; K21.9 Gastro-esophageal reflux disease without esophagitis; E03.9 Hypothyroidism, unspecified; I10 Essential (primary) hypertension; Z79.82 Long term (current) use of aspirin; Z96.643 Presence of artificial hip joint, bilateral; Z96.653 Presence of artificial knee joint, bilateral; Z87.891 Personal history of nicotine dependence; Z91.81 History of falling
CPT/HCPCS: 72020; 80048; 83735; 85014; 85018; 85025; 86850; 86900; 86901; 86920; 86999; 87086; 88304; 88311; 97116; 97161; 97530; C9113; J0131; J0690; J1100; J1170; J1200; J1644; J2175; J2370; J2405; J3010; J3480; J7120

== ENCOUNTER 2017-01-30 17:25 | Inpatient (IN) | payer MEDICARE, OTHER ==
[~2017-01-30] VITALS: Ht 158.8 cm; Wt 81.0 kg
[2017-01-30 08:00] VITALS: BP 129/60; RESP 18
[~2017-01-30 17:25] MED LIST changes: +ACET1TAB40 PO; -CEFAZOLIN 2 GM/50 ML (PMX) 50 ML IVPB ONE; -LACTATED RINGER'S 1,000 ML IV* ONE
--- NOTE | 2017-01-30 18:21 | PN ---
Date/Time of Note Date/Time of Note DATE: 01/30/17 TIME: 18:17 Assessment/Plan VTE Prophylaxis VTE Prophylaxis Intervention: ambulation, SCD's Assessment/Plan Problems: (1) Hypothyroidism Status: Chronic Comment: Continue levothyroxine (2) Mixed hyperlipidemia Status: Chronic Comment: Continue statin (3) Essential (primary) hypertension Status: Chronic Comment: Continue current blood pressure regimen (4) Gastro-esophageal reflux disease without esophagitis Status: Chronic Comment: Continue PPI (5) History of falling Status: Chronic Comment: Improved following surgery. Initiate rehab. (6) Abnormality of gait and mobility Status: Chronic Comment: Should improve following surgery. Initiate rehab. (7) Aftercare following surgery Status: Acute Comment: Begin intensive physical therapy in the acute rehab unit Subjective 24 Hr Interval Summary Constitutional: improved, no complaints Respiratory: no complaints Cardiovascular: no complaints Gastrointestinal: no complaints Genitourinary: no complaints Musculoskeletal: back pain (Still able get up and ambulate a few steps with physical therapy) Neurologic: no complaints Exam/Review of Systems Exam Constitutional: alert, frail, obese, oriented Psych: nl mood/affect, no complaints Respiratory: clear to auscultation, normal air movement Cardiovascular: nl pulses, regular rate and rhythm, No edema, No murmurs/extra sounds, No rub Gastrointestinal: bowel sounds, nl liver, spleen, non-tender, soft, No mass, No rebound or guarding Musculoskeletal: nl extremities to inspection Extremities: normal pulses, No clubbing, No cyanosis, No edema Neurological: ZINC PLATE GRAINER II-XII intact, nl mental status, nl speech, nl strength WALTER MELISSA MD Jan 30, 2017 18:21
[2017-01-30 18:24] VITALS: BP 124/75; PULSE 82; RESP 18
[2017-01-30] MEDS ORDERED: HYDROCODONE/APAP (10/325) TAB PO PRN (19:43)
[2017-01-30] MEDS ORDERED: BISACODYL 10 MG SUPP PR PRN (19:43)
[2017-01-30] MEDS ORDERED: AL HYDROX/MG HYDROX/SIMETH 30 ML CUP PO PRN (19:43)
[2017-01-30] MEDS ORDERED: DIPHENHYDRAMINE 25 MG CAP PO PRN (19:43)
[2017-01-30] MEDS ORDERED: NALOXONE (0.4 MG/ML) INJ IV PRN (19:43)
[2017-01-30] MEDS ORDERED: CEPASTAT LOZENGE MT PRN (19:43)
[2017-01-30] MEDS ORDERED: CALCIUM CARBONATE 500 MG CHEW TAB PO PRN (19:43)
[2017-01-30] MEDS ORDERED: DIPHENHYDRAMINE 50 MG INJ IV PRN (19:43)
[2017-01-30] MEDS ORDERED: ONDANSETRON 4 MG INJ IV PRN (19:43)
[2017-01-30] MEDS ORDERED: ACETAMINOPHEN 325 MG TAB PO PRN (19:43)
[2017-01-30 19:45] VITALS: Ht 158.8 cm; Wt 81.0 kg
[2017-01-30] MEDS: LORAZEPAM 1 MG TAB PO PRN (21:59)
[2017-01-30] MEDS: DOCUSATE SODIUM 100 MG CAP PO SCH (21:59)
[2017-01-30] MEDS: ATORVASTATIN 10 MG TAB PO SCH (21:59)
[2017-01-31 02:00] VITALS: BP 124/62; RESP 18
[2017-01-31] MEDS: HYDROCODONE/APAP (10/325) TAB PO PRN ×2 (06:43→20:59)
[2017-01-31] MEDS: PANTOPRAZOLE (EC) 40 MG TAB PO SCH (06:43)
[2017-01-31] MEDS: LEVOTHYROXINE 100 MCG TAB PO SCH (06:43)
[2017-01-31 07:10] LABS: BASOPHILS % 0.4 % (0.0-2.0); EOSINOPHILS # 0.2 10^3/ul (0.0-0.5); HEMOGLOBIN 9.2 g/dl (12.0-16.0); LYMPHOCYTES # 0.8 10^3/ul (0.8-2.9); LYMPHOCYTES % 9.9 % (15.0-51.0); MEAN CORPUSCULAR HEMOGLOBIN 28.9 pg (29.0-33.0); MEAN CORPUSCULAR HGB CONC 31.7 g/dl (32.0-37.0); MEAN CORPUSCULAR VOLUME 91.2 fl (82.0-101.0); MEAN PLATELET VOLUME 11.5 fl (7.4-10.4); MONOCYTE # 0.7 10^3/ul (0.3-0.9); MONOCYTES % 9.3 % (0.0-11.0); PLATELET COUNT 238 10^3/UL (140-415); RED BLOOD COUNT 3.18 10^6/ul (4.20-5.40); RED CELL DISTRIBUTION WIDTH 14.4 % (11.5-14.5); WHITE BLOOD COUNT 7.7 10^3/ul (4.8-10.8)
[2017-01-31 07:45] LABS: ALBUMIN 2.8 g/dl (3.3-4.9); ALBUMIN/GLOBULIN RATIO 1.03; BILIRUBIN,INDIRECT 0.4 mg/dl (0-1.1); BILIRUBIN,TOTAL 0.4 mg/dl (0.2-1.3); CALCIUM 8.6 mg/dl (8.4-10.2); CREATININE 0.53 mg/dl (0.44-1.00); POTASSIUM 4.3 mmol/L (3.5-5.1); TOTAL PROTEIN 5.5 g/dl (6.1-8.1)
[2017-01-31 08:00] VITALS: BP 119/58; RESP 18
[2017-01-31] MEDS: BUPROPION (XL) 150 MG TAB PO SCH (09:46)
[2017-01-31] MEDS: METOPROLOL (XL) 25 MG TAB PO SCH (09:47)
[2017-01-31] MEDS: DOCUSATE SODIUM 100 MG CAP PO SCH ×2 (09:47→21:00)
[2017-01-31] MEDS: CYCLOBENZAPRINE 10 MG TAB PO PRN (09:47)
[2017-01-31] MEDS ORDERED: MAGNESIUM HYDROXIDE 30ML CUP PO PRN (10:30)
[2017-01-31] MEDS ORDERED: LACTULOSE 30ML CUP PO PRN (10:30)
--- NOTE | 2017-01-31 13:27 | CONS ---
DATE OF ADMISSION: 01/30/2017 DATE OF CONSULTATION: 01/31/2017 Rehabilitation Post Admission Physician Evaluation REHABILITATION IMPAIRMENT CATEGORY: Lumbar spinal radiculopathy and anterolisthesis status post decompressive laminectomy. ACTIVE COMORBIDITIES: 1. Hyperlipidemia. 2. Acute pain syndrome. 3. Anxiety. 4. Hypothyroidism. 5. Gastroesophageal reflux disease. 6. Hypertension. 7. 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 8. History of total knee replacements bilaterally. 9. Impairments in self-care and mobility. HISTORY OF PRESENT ILLNESS: Patient is a very pleasant, 81-year- old female with a history of multiple medical comorbidities, who had been noting severe increasing radiating low back pain despite conservative measures. Patient underwent a decompressive lumbar laminectomy by Dr. Pimentel on 01/27/2017. Patient's hospital course has been notable for significant pain, constipation, and impairments in self-care and mobility as compared to baseline. The patient has been cleared to transfer to the rehabilitation unit for comprehensive interdisciplinary rehab care. Functional history prior to recent events: She was independent in self-care tasks and mobility. Currently patient requires moderate assist for self-care and mobility tasks. I have reviewed the preadmission screen and patient's current functional status is consistent with the preadmission screen. SOCIAL HISTORY: Patient lives at home and hopes to return there upon discharge. PAST MEDICAL HISTORY: 1. Low back pain as above. 2. Hyperlipidemia. 3. Anxiety. 4. Hypothyroidism. 5. Gastroesophageal reflux disease. 6. Hypertension. 7. 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 8. History of esophageal fundoplasty. 9. History of hysterectomy. MEDICATION: 1. [place] p.r.n. 2. Lipitor 10 mg p.o. daily. 3. Wellbutrin 150 p.o. daily 4. Tums p.r.n. 5. Flexeril 5 mg p.o. t.i.d. p.r.n. 6. Colace 100 mg b.i.d. 7. Dilaudid p.r.n. 8. Synthroid 100 mcg p.o. q.a.m. 9. Ativan p.r.n. 10. Toprol-XL 25 mg p.o. daily. 11. Protonix 40 mg p.o. daily. ALLERGIES: PATIENT WITH NO KNOWN DRUG ALLERGIES. PHYSICAL EXAMINATION: VITAL SIGNS: Patient is currently afebrile with stable vital signs. HEENT: Extraocular motion intact. Oropharynx clear. NECK: Supple. LUNGS: Clear anteriorly. HEART: S1, S2. ABDOMEN: Soft, nontender. Positive bowel sounds. NEUROLOGIC: She is awake and alert, and oriented to person and hospital. She will follow simple one-step commands. She demonstrates antigravity strength in the right upper extremity. She has decreased forward flexion and abduction in the left shoulder. She demonstrates dorsiflexion and plantar flexion, bilateral lower extremities. PLAN: The patient has been admitted for comprehensive interdisciplinary acute rehab and is anticipated to tolerate 3 hours of daily therapy in divided doses for at least 5 out of 7 days a week. The treatment plan will include: 1. Physical therapy to focus on bed mobility, transfers, and household ambulation with the goal of having patient reach standby assist level. 2. Occupational therapy to focus on hygiene, grooming, dressing, bathing and toileting activities with the goal of having patient reach standby assist level. 3. Rehabilitation nursing for carry over therapeutic interventions with the goal of continent to bowel and bladder, and the goal of pain adequately managed on oral medications. REHABILITATION BARRIER: Pain. INTERVENTION FOR BARRIER: Comprehensive interdisciplinary approach. ESTIMATED LENGTH OF STAY: 14 days. DISPOSITION GOAL: Home. I acknowledge I performed a full physical examination on this patient within 24 hours of admission to the rehabilitation unit and believe the patient is a good candidate for comprehensive interdisciplinary rehab care and is anticipated to make reasonable goals in a reasonable period of time as outlined above. Dictated By: Marta Angel MD /[email or web address]/ruben /Document#: [id number]
[2017-01-31 19:31] LABS: ADD UMIC NO; UR ASCORBIC ACID NEGATIVE (NEGATIVE); UR BILIRUBIN (Dip) NEGATIVE (NEGATIVE); UR BLOOD (Dip) NEGATIVE (NEGATIVE); UR CLARITY CLEAR (CLEAR); UR COLOR YELLOW (YELLOW); UR GLUCOSE (Dip) NEGATIVE (NEGATIVE); UR KETONES (Dip) NEGATIVE (NEGATIVE); UR LEUKOCYTE ESTERASE (Dip) NEGATIVE Leu/ul (NEGATIVE); UR NITRITE (Dip) NEGATIVE (NEGATIVE); UR TOTAL PROTEIN (Dip) NEGATIVE (NEGATIVE); UR UROBILINOGEN (Dip) NEGATIVE (NEGATIVE)
[2017-01-31 20:00] VITALS: BP 116/58; RESP 18
[2017-01-31] MEDS: ATORVASTATIN 10 MG TAB PO SCH (20:59)
[2017-01-31] MEDS: SENNA TAB PO SCH (21:00)
--- NOTE | 2017-01-31 23:47 | PN ---
Date/Time of Note Date/Time of Note DATE: 01/31/17 TIME: 1500 Late entry Assessment/Plan VTE Prophylaxis VTE Prophylaxis Intervention: ambulation Lines/Catheters Central line still needed: No Urinary Cath still in place: No Assessment/Plan Problems: (1) Aftercare following surgery Status: Acute (2) Type 2 diabetes mellitus with other specified complication Status: Chronic (3) Essential (primary) hypertension Status: Chronic (4) Mixed hyperlipidemia Status: Chronic (5) Hypothyroidism Status: Chronic (6) Anxiety disorder Status: Chronic (7) Sciatica Status: Chronic Assessment/Plan Patient doing well post operatively. Physical Therapy per the team in the ARU Subjective 24 Hr Interval Summary Free Text/Dictation Doing well. No complaints other than a little fatigued after physical therapy. Exam/Review of Systems Vital Signs Vitals Vital Signs Date Time Temp Pulse Resp B/P Pulse Ox O2 Delivery O2 Flow Rate FiO2 01/31/17 20:00 97.8 76 18 116/58 98 01/30/17 18:24 Room Air Intake and Output 01/30/17 01/30/17 01/31/17 15:00 23:00 07:00 Intake Total 660 ml Balance 660 ml Exam Constitutional: alert, oriented, well developed Psych: no complaints Head: normocephalic Eyes: EOMI, PERRL, nl conjunctiva Neck: non-tender, supple Respiratory: clear to auscultation, normal air movement Cardiovascular: regular rate and rhythm Gastrointestinal: soft Musculoskeletal: nl extremities to inspection Extremities: normal pulses, other (bilateral feet in heel protectors) Results Labs reviewed Result Diagram: 01/31/17 0649 01/31/17 0649 Results 24 hrs Laboratory Tests Test 01/31/17 06:49 01/31/17 07:00 White Blood Count 7.7 Red Blood Count 3.18 L Hemoglobin 9.2 L Hematocrit 29.0 L Mean Corpuscular Volume 91.2 Mean Corpuscular Hemoglobin 28.9 L Mean Corpuscular Hemoglobin Concent 31.7 L Red Cell Distribution Width 14.4 Platelet Count 238 Mean Platelet Volume 11.5 H Neutrophils % 77.0 Lymphocytes % 9.9 L Monocytes % 9.3 Eosinophils % 3.0 Basophils % 0.4 Nucleated Red Blood Cells % 0.0 Neutrophils # (Manual) 5.9 Lymphocytes # 0.8 Monocytes # 0.7 Eosinophils # 0.2 Basophils # 0.0 Nucleated Red Blood Cells # 0.0 Sodium Level 136 Potassium Level 4.3 Chloride Level 104 Carbon Dioxide Level 28 Anion Gap 8 Blood Urea Nitrogen 9 Creatinine 0.53 Glucose Level 117 Calcium Level 8.6 Total Bilirubin 0.4 Direct Bilirubin 0.00 Indirect Bilirubin 0.4 Aspartate Amino Transf (AST/SGOT) 15 Alanine Aminotransferase (ALT/SGPT) 20 Alkaline Phosphatase 61 Total Protein 5.5 L Albumin 2.8 L Globulin 2.70 Albumin/Globulin Ratio 1.03 Urine Color YELLOW Urine Clarity CLEAR Urine pH 7.0 Urine Specific [place] 1.010 Urine Ketones NEGATIVE Urine Nitrite NEGATIVE Urine Bilirubin NEGATIVE Urine Urobilinogen NEGATIVE Urine Leukocyte Esterase NEGATIVE Urine Hemoglobin NEGATIVE Urine Glucose NEGATIVE Urine Total Protein NEGATIVE Medications Medications Current Medications Acetaminophen/ Hydrocodone Bitart ([place] (10325)) 1 tab Q4H PRN PO PAIN LEVEL 1-5 Last administered on 01/31/17 11:43; Admin Dose 1 TAB; Start 01/30/17 at 19: 43 Acetaminophen/ Hydrocodone Bitart ([place] (325)) 2 tab Q4H PRN PO PAIN LEVEL 6-10 Last administered on 01/31/17 20:59; Admin Dose 2 TAB; Start 01/30/17 at 19: 43 Hydromorphone HCl (Dilaudid) 0.2 mg Q1H PRN IV BREAKTHROUGH PAIN; Start at 19:43 Ondansetron HCl (Zofran Inj) 4 mg Q6H PRN IV NAUSEA AND/OR VOMITING; Start 01/30 at 19:43 Bisacodyl (Dulcolax Supp) 10 mg DAILY PRN [place] CONSTIPATION; Start 01/30/17 at 19: 43 Docusate Sodium (Colace) 100 mg BID PO Last administered on 01/31/17 09:47; Admin Dose 100 MG; Start 01/30/17 at 19:43 Al Hydrox/Mg Hydrox/Simethicone (Mag-Al Plus) 15 ml Q6H PRN PO CONSTIPATION/ DYSPEPSIA; Start 01/30/17 at 19:43 Acetaminophen (Tylenol Tab) 650 mg Q4H PRN PO RICHTER OR TEMP GREATER THAN 101.3F; Start 01/30/17 at 19:43 Cyclobenzaprine HCl (Flexeril) 5 mg TID PRN PO MUSCLE SPASMS Last administered on 01/31/17 09:47; Admin Dose 5 MG; Start 01/30/17 at 19:43 Phenol (Cepastat Lozenge) 1 lozenge PRN PRN [place] SORE THROAT; Start 01/30/17 at 19 :43 Diphenhydramine HCl (Benadryl) 25 mg Q6H PRN PO ITCHING; Start 01/30/17 at 19:43 Diphenhydramine HCl (Benadryl) 25 mg Q6H PRN IV ITCHING; Start 01/30/17 at 19:43 Naloxone HCl (Narcan) 0.2 mg Q2M PRN IV RR 8 BREATHS/MIN OR LESS; Start at 19:43 Bupropion HCl (Wellbutrin Xl) 150 mg DAILY PO Last administered on 01/31/17 09: 46; Admin Dose 150 MG; Start 01/30/17 at 19:43 Lorazepam (Ativan) 2 mg BID PRN PO ANXIETY Last administered on 01/30/17 21:59 ; Admin Dose 2 MG; Start 01/30/17 at 19:43 Metoprolol Succinate (Toprol Xl) 25 mg DAILY PO Last administered on 01/31/17 09:47; Admin Dose 25 MG; Start 01/30/17 at 19:43 Atorvastatin Calcium (Lipitor) 10 mg DAILY@21 PO Last administered on 01/31/17 20:59; Admin Dose 10 MG; Start 01/30/17 at 19:43 Pantoprazole (Protonix Tab) 40 mg DAILY@06 PO Last administered on 01/31/17 06: 43; Admin Dose 40 MG; Start 01/30/17 at 19:43 Calcium Carbonate (Tums) 500 mg QID PRN PO HEARTBURN; Start 01/30/17 at 19:43 Senna (Senokot) 1 tab DAILY@21 PO ; Start 01/31/17 at 21:00 Lactulose (Enulose) 20 gm DAILY PRN PO CONSTIPATION Last administered on 11:43; Admin Dose 20 GM; Start 01/31/17 at 10:30 Magnesium Hydroxide (Milk Of Mag) 30 ml DAILY PRN PO CONSTIPATION; Start at 10:30 MIKHAIL PICHARDO MD Jan 31, 2017 23:47
[2017-02-01] MEDS: LEVOTHYROXINE 100 MCG TAB PO SCH (06:41)
[2017-02-01] MEDS: PANTOPRAZOLE (EC) 40 MG TAB PO SCH (06:41)
[2017-02-01] MEDS: HYDROCODONE/APAP (10/325) TAB PO PRN ×2 (06:44→20:45)
[2017-02-01] MEDS: HYDROmorphONE 1 MG/ML SYG IV PRN ×2 (08:23→09:45)
[2017-02-01] MEDS: METOPROLOL (XL) 25 MG TAB PO SCH (09:00)
[2017-02-01] MEDS: DOCUSATE SODIUM 100 MG CAP PO SCH ×2 (09:58→10:02)
[2017-02-01] MEDS: BUPROPION (XL) 150 MG TAB PO SCH (09:58)
[2017-02-01] MEDS: LORAZEPAM 1 MG TAB PO PRN (10:00)
--- NOTE | 2017-02-01 16:46 | PN ---
Date/Time of Note Date/Time of Note DATE: 02/01/17 TIME: 16:41 Assessment/Plan VTE Prophylaxis VTE Prophylaxis Intervention: ambulation Lines/Catheters Urinary Cath still in place: No Assessment/Plan Problems: (1) Low back pain Status: Chronic (2) Sciatica Status: Chronic (3) Hypothyroidism Status: Chronic (4) Mixed hyperlipidemia Status: Chronic (5) Essential (primary) hypertension Status: Chronic (6) Gastro-esophageal reflux disease without esophagitis Status: Chronic (7) Abnormality of gait and mobility Status: Chronic (8) Type 2 diabetes mellitus with other specified complication Status: Chronic (9) Aftercare following surgery Status: Acute Assessment/Plan Clinically stable after surgery. Continue PT per Acute Rehab Unit Subjective 24 Hr Interval Summary Free Text/Dictation No complaints today Exam/Review of Systems Vital Signs Vitals Vital Signs Date Time Temp Pulse Resp B/P Pulse Ox O2 Delivery O2 Flow Rate FiO2 01/31/17 20:00 97.8 76 18 116/58 98 01/30/17 18:24 Room Air Intake and Output 01/31/17 01/31/17 02/01/17 15:00 23:00 07:00 Intake Total 800 ml 520 ml 700 ml Balance 800 ml 520 ml 700 ml Exam Constitutional: alert, oriented, well developed Neck: supple Respiratory: clear to auscultation Cardiovascular: regular rate and rhythm Gastrointestinal: soft Extremities: normal pulses Results Result Diagram: 01/31/17 0649 01/31/17 0649 Medications Medications Current Medications Acetaminophen/ Hydrocodone Bitart ([place] (10/325)) 1 tab Q4H PRN PO PAIN LEVEL 1-5 Last administered on 01/31/17 11:43; Admin Dose 1 TAB; Start 01/30/17 at 19: 43 Acetaminophen/ Hydrocodone Bitart ([place] (10/325)) 2 tab Q4H PRN PO PAIN LEVEL 6-10 Last administered on 02/01/17 06:44; Admin Dose 2 TAB; Start 01/30/17 at 19 :43 Hydromorphone HCl (Dilaudid) 0.2 mg Q1H PRN IV BREAKTHROUGH PAIN Last administered on 02/01/17 09:45; Admin Dose 0.2 MG; Start 01/30/17 at 19:43 Ondansetron HCl (Zofran Inj) 4 mg Q6H PRN IV NAUSEA AND/OR VOMITING; Start 01/30 at 19:43 Bisacodyl (Dulcolax Supp) 10 mg DAILY PRN [place] CONSTIPATION; Start 01/30/17 at 19: 43 Docusate Sodium (Colace) 100 mg BID PO Last administered on 02/01/17 10:02; Admin Dose 100 MG; Start 01/30/17 at 19:43 Al Hydrox/Mg Hydrox/Simethicone (Mag-Al Plus) 15 ml Q6H PRN PO CONSTIPATION/ DYSPEPSIA; Start 01/30/17 at 19:43 Acetaminophen (Tylenol Tab) 650 mg Q4H PRN PO RICHTER OR TEMP GREATER THAN 101.3F; Start 01/30/17 at 19:43 Cyclobenzaprine HCl (Flexeril) 5 mg TID PRN PO MUSCLE SPASMS Last administered on 01/31/17 09:47; Admin Dose 5 MG; Start 01/30/17 at 19:43 Phenol (Cepastat Lozenge) 1 lozenge PRN PRN MT SORE THROAT; Start 01/30/17 at 19 :43 Diphenhydramine HCl (Benadryl) 25 mg Q6H PRN PO ITCHING; Start 01/30/17 at 19:43 Diphenhydramine HCl (Benadryl) 25 mg Q6H PRN IV ITCHING; Start 01/30/17 at 19:43 Naloxone HCl (Narcan) 0.2 mg Q2M PRN IV RR 8 BREATHS/MIN OR LESS; Start at 19:43 Bupropion HCl (Wellbutrin Xl) 150 mg DAILY PO Last administered on 02/01/17 09 :58; Admin Dose 150 MG; Start 01/30/17 at 19:43 Lorazepam (Ativan) 2 mg BID PRN PO ANXIETY Last administered on 02/01/17 10:00 ; Admin Dose 2 MG; Start 01/30/17 at 19:43 Metoprolol Succinate (Toprol Xl) 25 mg DAILY PO Last administered on 01/31/17 09:47; Admin Dose 25 MG; Start 01/30/17 at 19:43 Atorvastatin Calcium (Lipitor) 10 mg DAILY@21 PO Last administered on 01/31/17 20:59; Admin Dose 10 MG; Start 01/30/17 at 19:43 Pantoprazole (Protonix Tab) 40 mg DAILY@06 PO Last administered on 02/01/17 06 :41; Admin Dose 40 MG; Start 01/30/17 at 19:43 Calcium Carbonate (Tums) 500 mg QID PRN PO HEARTBURN; Start 01/30/17 at 19:43 Senna (Senokot) 1 tab DAILY@21 PO ; Start 01/31/17 at 21:00 Lactulose (Enulose) 20 gm DAILY PRN PO CONSTIPATION Last administered on 11:43; Admin Dose 20 GM; Start 01/31/17 at 10:30 Magnesium Hydroxide (Milk Of Mag) 30 ml DAILY PRN PO CONSTIPATION; Start at 10:30 MIKHAIL PICHARDO MD Feb 01, 2017 16:46
[2017-02-01 20:34] VITALS: BP 124/60; RESP 18
[2017-02-01] MEDS: ATORVASTATIN 10 MG TAB PO SCH (20:44)
[2017-02-01] MEDS: SENNA TAB PO SCH (21:00)
[2017-02-02 02:00] VITALS: BP 116/64; RESP 18
[2017-02-02] MEDS: PANTOPRAZOLE (EC) 40 MG TAB PO SCH (06:08)
[2017-02-02] MEDS: LEVOTHYROXINE 100 MCG TAB PO SCH (06:08)
[2017-02-02 07:30] VITALS: BP 139/65; RESP 20
[2017-02-02] MEDS: DOCUSATE SODIUM 100 MG CAP PO SCH ×2 (08:47→21:00)
[2017-02-02] MEDS: BUPROPION (XL) 150 MG TAB PO SCH (08:47)
[2017-02-02] MEDS: HYDROCODONE/APAP (10/325) TAB PO PRN ×3 (08:47→20:07)
[2017-02-02] MEDS: METOPROLOL (XL) 25 MG TAB PO SCH (08:48)
[2017-02-02] MEDS: CYCLOBENZAPRINE 10 MG TAB PO PRN (08:48)
--- NOTE | 2017-02-02 12:15 | CONS ---
Date/Time of Note Date/Time of Note DATE: 02/02/17 TIME: 12:14 Consult Date/Type/Reason Admit Date/Time Jan 30, 2017 at 18:00 Initial Consult Date Objective Vital Signs Date Time Temp Pulse Resp B/P Pulse Ox O2 Delivery O2 Flow Rate FiO2 02/02/17 07:30 97.7 89 20 139/65 95 01/30/17 18:24 Room Air Intake and Output 02/01/17 02/01/17 02/02/17 15:00 23:00 07:00 Intake Total 120 ml 120 ml 120 ml Balance 120 ml 120 ml 120 ml INTERDISCIPLINARY TEAM CONFERENCE BOWEL- Cont BLADDER-Cont SKIN- intact OT- DRESSING-min/mod BATHING-min/mod TOILETING-min/mod PT- BED MOBILITY-min TRANSFERS-min AMBULATION-min 90 feet A/P- Interdisciplinary team conference held today. Please see interdisciplinary sheet. Working toward d.c. on 02/10 with post discharge follow up of physical therapy, occupational therapy. Results/Medications Result Diagram: 01/31/17 0649 01/31/17 0649 Medications Current Medications Acetaminophen/ Hydrocodone Bitart ([place] (10/325)) 1 tab Q4H PRN PO PAIN LEVEL 1-5 Last administered on 01/31/17 11:43; Admin Dose 1 TAB; Start 01/30/17 at 19: 43 Acetaminophen/ Hydrocodone Bitart ([place] (10/325)) 2 tab Q4H PRN PO PAIN LEVEL 6-10 Last administered on 02/02/17 08:47; Admin Dose 2 TAB; Start 01/30/17 at 19 :43 Hydromorphone HCl (Dilaudid) 0.2 mg Q1H PRN IV BREAKTHROUGH PAIN Last administered on 02/01/17 09:45; Admin Dose 0.2 MG; Start 01/30/17 at 19:43 Ondansetron HCl (Zofran Inj) 4 mg Q6H PRN IV NAUSEA AND/OR VOMITING; Start 01/30 at 19:43 Bisacodyl (Dulcolax Supp) 10 mg DAILY PRN [place] CONSTIPATION; Start 01/30/17 at 19: 43 Docusate Sodium (Colace) 100 mg BID PO Last administered on 02/02/17 08:47; Admin Dose 100 MG; Start 01/30/17 at 19:43 Al Hydrox/Mg Hydrox/Simethicone (Mag-Al Plus) 15 ml Q6H PRN PO CONSTIPATION/ DYSPEPSIA; Start 01/30/17 at 19:43 Acetaminophen (Tylenol Tab) 650 mg Q4H PRN PO RICHTER OR TEMP GREATER THAN 101.3F; Start 01/30/17 at 19:43 Cyclobenzaprine HCl (Flexeril) 5 mg TID PRN PO MUSCLE SPASMS Last administered on 02/02/17 08:48; Admin Dose 5 MG; Start 01/30/17 at 19:43 Phenol (Cepastat Lozenge) 1 lozenge PRN PRN [place] SORE THROAT; Start 01/30/17 at 19 :43 Diphenhydramine HCl (Benadryl) 25 mg Q6H PRN PO ITCHING; Start 01/30/17 at 19:43 Diphenhydramine HCl (Benadryl) 25 mg Q6H PRN IV ITCHING; Start 01/30/17 at 19:43 Naloxone HCl (Narcan) 0.2 mg Q2M PRN IV RR 8 BREATHS/MIN OR LESS; Start at 19:43 Bupropion HCl (Wellbutrin Xl) 150 mg DAILY PO Last administered on 02/02/17 08 :47; Admin Dose 150 MG; Start 01/30/17 at 19:43 Lorazepam (Ativan) 2 mg BID PRN PO ANXIETY Last administered on 02/01/17 10:00 ; Admin Dose 2 MG; Start 01/30/17 at 19:43 Metoprolol Succinate (Toprol Xl) 25 mg DAILY PO Last administered on 02/02/17 08:48; Admin Dose 25 MG; Start 01/30/17 at 19:43 Atorvastatin Calcium (Lipitor) 10 mg DAILY@21 PO Last administered on 20:44; Admin Dose 10 MG; Start 01/30/17 at 19:43 Pantoprazole (Protonix Tab) 40 mg DAILY@06 PO Last administered on 02/02/17 06 :08; Admin Dose 40 MG; Start 01/30/17 at 19:43 Calcium Carbonate (Tums) 500 mg QID PRN PO HEARTBURN; Start 01/30/17 at 19:43 Senna (Senokot) 1 tab DAILY@21 PO ; Start 01/31/17 at 21:00 Lactulose (Enulose) 20 gm DAILY PRN PO CONSTIPATION Last administered on t 11:43; Admin Dose 20 GM; Start 01/31/17 at 10:30 Magnesium Hydroxide (Milk Of Mag) 30 ml DAILY PRN PO CONSTIPATION; Start at 10:30 Trimethoprim/ Sulfamethoxazole (Bactrim (Ds)) 1 tab BID PO ; Start 02/02/17 at 11:00; Stop 02/05/17 at 10:59 ALEIDA CLEMENT MD Feb 02, 2017 12:15
[2017-02-02] MEDS: TRIMETHOPRIM/SULFAMETHOX (DS) TAB PO SCH ×2 (12:18→20:06)
[2017-02-02 14:00] VITALS: BP 112/56; RESP 18
--- NOTE | 2017-02-02 18:16 | PN ---
Date/Time of Note Date/Time of Note DATE: 02/02/17 TIME: 18:10 Assessment/Plan VTE Prophylaxis VTE Prophylaxis Intervention: ambulation Lines/Catheters IV Catheter Type (from Nrs): Saline Lock Urinary Cath still in place: No Assessment/Plan Problems: (1) History of falling Status: Chronic Comment: Hopeful to improve post spinal surgery. Continue PT in rehab unit (2) Abnormality of gait and mobility Status: Chronic Comment: Hopeful to improve following spinal surgery. Continue PT in rehab unit (3) Aftercare following surgery Status: Acute Comment: Continue rehab. (4) Acute lower urinary tract infection Status: Acute Comment: Due to E. coli. Started on Bactrim double strength 1 p.o. twice daily 3 days (5) Hypothyroidism Status: Chronic Comment: Continue levothyroxine (6) Mixed hyperlipidemia Status: Chronic Comment: Continue statin (7) Major depressive disorder, recurrent, moderate Status: Chronic Comment: Continue Wellbutrin (8) Essential (primary) hypertension Status: Chronic Comment: Good control. Continue current blood pressure medication (9) Gastro-esophageal reflux disease without esophagitis Status: Chronic Comment: Continue PPI Subjective 24 Hr Interval Summary Constitutional: improved, no complaints Respiratory: no complaints Cardiovascular: no complaints Gastrointestinal: no complaints Genitourinary: no complaints Musculoskeletal: back pain, bone/joint pain (Bilateral knees) Neurologic: no complaints Exam/Review of Systems Vital Signs Vitals VS - Last 72 Hours, by Label Date Time Temp Pulse Resp B/P Pulse Ox O2 Delivery O2 Flow Rate FiO2 02/02/17 14:00 97.5 97 18 112/56 94 02/02/17 07:30 97.7 89 20 139/65 95 02/02/17 02:00 97.8 84 18 116/64 96 02/01/17 20:34 98.6 91 18 124/60 95 01/31/17 20:00 97.8 76 18 116/58 98 01/31/17 08:00 98.4 80 18 119/58 97 01/31/17 02:00 98.7 82 18 124/62 97 01/30/17 18:24 98.5 82 18 124/75 97 Room Air Vital Signs Date Time Temp Pulse Resp B/P Pulse Ox O2 Delivery O2 Flow Rate FiO2 02/02/17 14:00 97.5 97 18 112/56 94 01/30/17 18:24 Room Air Intake and Output 02/01/17 02/01/17 02/02/17 15:00 23:00 07:00 Intake Total 120 ml 120 ml 120 ml Balance 120 ml 120 ml 120 ml Exam Constitutional: alert, frail, obese, oriented Psych: nl mood/affect, no complaints Respiratory: clear to auscultation, normal air movement Cardiovascular: nl pulses, regular rate and rhythm, No edema, No murmurs/extra sounds, No rub Gastrointestinal: bowel sounds, nl liver, spleen, non-tender, soft, No mass, No rebound or guarding Musculoskeletal: nl extremities to inspection, No nl gait and stance (Ambulating with front wheel walker) Extremities: normal pulses, No clubbing, No cyanosis, No edema Neurological: [employer]CHIT[employer] II-XII intact, nl mental status, nl speech, nl strength Results Result Diagram: 01/31/17 0649 01/31/17 0649 Medications Medications Current Medications Acetaminophen/ Hydrocodone Bitart ([place] (10/325)) 1 tab Q4H PRN PO PAIN LEVEL 1-5 Last administered on 01/31/17 11:43; Admin Dose 1 TAB; Start 01/30/17 at 19: 43 Acetaminophen/ Hydrocodone Bitart ([place] (10/325)) 2 tab Q4H PRN PO PAIN LEVEL 6-10 Last administered on 02/02/17 14:49; Admin Dose 2 TAB; Start 01/30/17 at 19 :43 Hydromorphone HCl (Dilaudid) 0.2 mg Q1H PRN IV BREAKTHROUGH PAIN Last administered on 02/01/17 09:45; Admin Dose 0.2 MG; Start 01/30/17 at 19:43 Ondansetron HCl (Zofran Inj) 4 mg Q6H PRN IV NAUSEA AND/OR VOMITING; Start 01/30 at 19:43 Bisacodyl (Dulcolax Supp) 10 mg DAILY PRN [place] CONSTIPATION; Start 01/30/17 at 19: 43 Docusate Sodium (Colace) 100 mg BID PO Last administered on 02/02/17 08:47; Admin Dose 100 MG; Start 01/30/17 at 19:43 Al Hydrox/Mg Hydrox/Simethicone (Mag-Al Plus) 15 ml Q6H PRN PO CONSTIPATION/ DYSPEPSIA; Start 01/30/17 at 19:43 Acetaminophen (Tylenol Tab) 650 mg Q4H PRN PO RICHTER OR TEMP GREATER THAN 101.3F; Start 01/30/17 at 19:43 Cyclobenzaprine HCl (Flexeril) 5 mg TID PRN PO MUSCLE SPASMS Last administered on 02/02/17 08:48; Admin Dose 5 MG; Start 01/30/17 at 19:43 Phenol (Cepastat Lozenge) 1 lozenge PRN PRN [place] SORE THROAT; Start 01/30/17 at 19 :43 Diphenhydramine HCl (Benadryl) 25 mg Q6H PRN PO ITCHING; Start 01/30/17 at 19:43 Diphenhydramine HCl (Benadryl) 25 mg Q6H PRN IV ITCHING; Start 01/30/17 at 19:43 Naloxone HCl (Narcan) 0.2 mg Q2M PRN IV RR 8 BREATHS/MIN OR LESS; Start at 19:43 Bupropion HCl (Wellbutrin Xl) 150 mg DAILY PO Last administered on 02/02/17 08 :47; Admin Dose 150 MG; Start 01/30/17 at 19:43 Lorazepam (Ativan) 2 mg BID PRN PO ANXIETY Last administered on 02/01/17 10:00 ; Admin Dose 2 MG; Start 01/30/17 at 19:43 Metoprolol Succinate (Toprol Xl) 25 mg DAILY PO Last administered on 02/02/17 08:48; Admin Dose 25 MG; Start 01/30/17 at 19:43 Atorvastatin Calcium (Lipitor) 10 mg DAILY@21 PO Last administered on 20:44; Admin Dose 10 MG; Start 01/30/17 at 19:43 Pantoprazole (Protonix Tab) 40 mg DAILY@06 PO Last administered on 02/02/17 06 :08; Admin Dose 40 MG; Start 01/30/17 at 19:43 Calcium Carbonate (Tums) 500 mg QID PRN PO HEARTBURN; Start 01/30/17 at 19:43 Senna (Senokot) 1 tab DAILY@21 PO ; Start 01/31/17 at 21:00 Lactulose (Enulose) 20 gm DAILY PRN PO CONSTIPATION Last administered on 11:43; Admin Dose 20 GM; Start 01/31/17 at 10:30 Magnesium Hydroxide (Milk Of Mag) 30 ml DAILY PRN PO CONSTIPATION; Start at 10:30 Trimethoprim/ Sulfamethoxazole (Bactrim (Ds)) 1 tab BID PO Last administered on 02/02/17 12:18; Admin Dose 1 TAB; Start 02/02/17 at 11:00; Stop 02/05/17 at 10:59 WALTER MELISSA MD Feb 02, 2017 18:16
[2017-02-02 20:00] VITALS: BP 118/58; RESP 18
[2017-02-02] MEDS: ATORVASTATIN 10 MG TAB PO SCH (20:07)
[2017-02-02] MEDS: SENNA TAB PO SCH (20:08)
[2017-02-02] MEDS: LORAZEPAM 1 MG TAB PO PRN (20:10)
[2017-02-03 02:00] VITALS: BP 122/67; RESP 18
[2017-02-03] MEDS: LEVOTHYROXINE 100 MCG TAB PO SCH (06:30)
[2017-02-03] MEDS: PANTOPRAZOLE (EC) 40 MG TAB PO SCH (06:30)
--- NOTE | 2017-02-03 06:59 | DS ---
Date/Time of Note Date/Time of Note DATE: 02/03/17 TIME: 06:58 Discharge Summary Admission/Discharge Info Admit Date/Time Jan 27, 2017 Discharge Date/Time jan 29 Discharge Diagnosis lumbar decompression Patient Condition: Good Procedures lumbar decompression Hospital Course patient admitted to [facility] after surgery. post op did well. uncomplicated. transfer to acute rehab Home Meds Reported Medications Acetaminophen with Codeine (Acetaminophen-Cod #3 Tablet) 1 Each Tablet, 1 TAB PO BID, #7 TAB 01/27/17 [Nexim] No Conflict Check, 223 PO DAILY 07/04/15 Metoprolol Succinate* (Toprol XL*) 25 Mg Tab.sr.24h, 25 MG PO DAILY, #30 TAB 07/04/15 Nifedipine* (Nifedipine ER*) 60 Mg Tablet.sa, 60 MG PO DAILY, TAB.SA 07/04/15 Pravastatin Sodium* (Pravastatin Sodium*) 40 Mg Tablet, 50 MG PO HS, TAB 07/04/15 Bupropion Hcl* (Bupropion XL*) 150 Mg Tab.er.24h, 150 MG PO DAILY, TAB.SA 07/04/15 Lorazepam* (Lorazepam*) 1 Mg Tablet, 2 MG PO BID Y for ANXIETY, #30 TAB 07/04/15 Levothyroxine Sodium* (Levothyroxine Sodium*) 100 Mcg Tablet, 100 MCG PO BEFORE BREAKFAST, #30 TAB 07/04/15 [Red Rice Yeast] No Conflict Check, 120 MG PO QHS 07/28/13 Primary Care Provider MD SUNDAR Bishop BABAK MD Feb 03, 2017 06:59
[2017-02-03 08:18] VITALS: BP 136/62; PULSE 88; RESP 20
[2017-02-03] MEDS: BUPROPION (XL) 150 MG TAB PO SCH (08:26)
[2017-02-03] MEDS: DOCUSATE SODIUM 100 MG CAP PO SCH ×2 (08:26→22:05)
[2017-02-03] MEDS: TRIMETHOPRIM/SULFAMETHOX (DS) TAB PO SCH ×2 (08:27→22:05)
[2017-02-03] MEDS: HYDROCODONE/APAP (10/325) TAB PO PRN ×2 (08:27→13:34)
[2017-02-03] MEDS: METOPROLOL (XL) 25 MG TAB PO SCH (08:28)
[2017-02-03] MEDS: CYCLOBENZAPRINE 10 MG TAB PO PRN (08:28)
--- NOTE | 2017-02-03 12:48 | CONS ---
Date/Time of Note Date/Time of Note DATE: 02/03/17 TIME: 12:46 Consult Date/Type/Reason Admit Date/Time Jan 30, 2017 at 18:00 Subjective Comfortable Objective Lungs clear abdomen soft Moderate assist 100 feet Vital Signs Date Time Temp Pulse Resp B/P Pulse Ox O2 Delivery O2 Flow Rate FiO2 02/03/17 08:18 98.8 88 20 136/62 94 Room Air Intake and Output 02/02/17 02/02/17 02/03/17 15:00 23:00 07:00 Intake Total 620 ml 240 ml Balance 620 ml 240 ml Results/Medications Result Diagram: 01/31/17 0649 01/31/17 0649 Medications Current Medications Acetaminophen/ Hydrocodone Bitart ([place] (10/325)) 1 tab Q4H PRN PO PAIN LEVEL 1-5 Last administered on 01/31/17 11:43; Admin Dose 1 TAB; Start 01/30/17 at 19: 43 Acetaminophen/ Hydrocodone Bitart ([place] (10/325)) 2 tab Q4H PRN PO PAIN LEVEL 6-10 Last administered on 02/03/17 08:27; Admin Dose 2 TAB; Start 01/30/17 at 19 :43 Hydromorphone HCl (Dilaudid) 0.2 mg Q1H PRN IV BREAKTHROUGH PAIN Last administered on 02/01/17 09:45; Admin Dose 0.2 MG; Start 01/30/17 at 19:43 Ondansetron HCl (Zofran Inj) 4 mg Q6H PRN IV NAUSEA AND/OR VOMITING; Start 01/30 at 19:43 Bisacodyl (Dulcolax Supp) 10 mg DAILY PRN [place] CONSTIPATION; Start 01/30/17 at 19: 43 Docusate Sodium (Colace) 100 mg BID PO Last administered on 02/03/17 08:26; Admin Dose 100 MG; Start 01/30/17 at 19:43 Al Hydrox/Mg Hydrox/Simethicone (Mag-Al Plus) 15 ml Q6H PRN PO CONSTIPATION/ DYSPEPSIA; Start 01/30/17 at 19:43 Acetaminophen (Tylenol Tab) 650 mg Q4H PRN PO RICHTER OR TEMP GREATER THAN 101.3F; Start 01/30/17 at 19:43 Cyclobenzaprine HCl (Flexeril) 5 mg TID PRN PO MUSCLE SPASMS Last administered on 02/03/17 08:28; Admin Dose 5 MG; Start 01/30/17 at 19:43 Phenol (Cepastat Lozenge) 1 lozenge PRN PRN [place] SORE THROAT; Start 01/30/17 at 19 :43 Diphenhydramine HCl (Benadryl) 25 mg Q6H PRN PO ITCHING; Start 01/30/17 at 19:43 Diphenhydramine HCl (Benadryl) 25 mg Q6H PRN IV ITCHING; Start 01/30/17 at 19:43 Naloxone HCl (Narcan) 0.2 mg Q2M PRN IV RR 8 BREATHS/MIN OR LESS; Start at 19:43 Bupropion HCl (Wellbutrin Xl) 150 mg DAILY PO Last administered on 02/03/17 08 :26; Admin Dose 150 MG; Start 01/30/17 at 19:43 Lorazepam (Ativan) 2 mg BID PRN PO ANXIETY Last administered on 02/02/17 20:10 ; Admin Dose 2 MG; Start 01/30/17 at 19:43 Metoprolol Succinate (Toprol Xl) 25 mg DAILY PO Last administered on 02/03/17 08:28; Admin Dose 25 MG; Start 01/30/17 at 19:43 Atorvastatin Calcium (Lipitor) 10 mg DAILY@21 PO Last administered on 20:07; Admin Dose 10 MG; Start 01/30/17 at 19:43 Pantoprazole (Protonix Tab) 40 mg DAILY@06 PO Last administered on 02/03/17 06 :30; Admin Dose 40 MG; Start 01/30/17 at 19:43 Calcium Carbonate (Tums) 500 mg QID PRN PO HEARTBURN; Start 01/30/17 at 19:43 Senna (Senokot) 1 tab DAILY@21 PO ; Start 01/31/17 at 21:00 Lactulose (Enulose) 20 gm DAILY PRN PO CONSTIPATION Last administered on 11:43; Admin Dose 20 GM; Start 01/31/17 at 10:30 Magnesium Hydroxide (Milk Of Mag) 30 ml DAILY PRN PO CONSTIPATION; Start at 10:30 Trimethoprim/ Sulfamethoxazole (Bactrim (Ds)) 1 tab BID PO Last administered on 02/03/17t 08:27; Admin Dose 1 TAB; Start 02/02/17 at 11:00; Stop 02/05/17 at 10:59 Assessment/Plan Additional Assessment/Plan Rehab -lumbar spinal radiculopathy and anterolisthesis status post decompressive laminectomy. Continue interdisciplinary treatment plan Hyperlipidemia. Acute pain syndrome-continue current medication Anxiety. Hypothyroidism. Gastroesophageal reflux disease. Hypertension. 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 History of total knee replacements bilaterally. ALEIDA CLEMENT MD Feb 03, 2017 12:48
[2017-02-03 14:51] VITALS: BP 119/62; RESP 18
[2017-02-03] MEDS: LORAZEPAM 1 MG TAB PO PRN (17:31)
--- NOTE | 2017-02-03 18:53 | PN ---
Date/Time of Note Date/Time of Note DATE: 02/03/17 TIME: 18:48 Assessment/Plan VTE Prophylaxis VTE Prophylaxis Intervention: ambulation Lines/Catheters IV Catheter Type (from Nrsg): Saline Lock Urinary Cath still in place: No Assessment/Plan Problems: (1) Knee pain, bilateral Status: Acute Comment: Trial of diclofenac cream 4 times daily (2) History of falling Status: Chronic Comment: Hopeful to improve following spinal surgery. Continue rehab. (3) Abnormality of gait and mobility Status: Chronic Comment: Hopeful to improve following spinal surgery. Continue rehab. (4) Hypothyroidism Status: Chronic Comment: Continue levothyroxine (5) Mixed hyperlipidemia Status: Chronic Comment: Continue statin (6) Major depressive disorder, recurrent, moderate Status: Chronic Comment: Continue Wellbutrin (7) Essential (primary) hypertension Status: Chronic Comment: Good control. Continue current regimen. (8) Aftercare following surgery Status: Acute Comment: Continue rehab. (9) Acute lower urinary tract infection Status: Acute Comment: Continue Bactrim DS Subjective 24 Hr Interval Summary Constitutional: other (Complains of weakness in her legs) Respiratory: no complaints Cardiovascular: no complaints Gastrointestinal: no complaints Genitourinary: no complaints Musculoskeletal: bone/joint pain (Bilateral lower extremities and area above the knees on the lower thighs) Neurologic: no complaints Exam/Review of Systems Vital Signs Vitals VS - Last 72 Hours, by Label Date Time Temp Pulse Resp B/P Pulse Ox O2 Delivery O2 Flow Rate FiO2 02/03/17 14:51 97.9 78 18 119/62 95 02/03/17 08:18 98.8 88 20 136/62 94 Room Air 02/03/17 02:00 98.0 85 18 122/67 94 02/02/17 20:00 98.2 77 18 118/58 95 02/02/17 14:00 97.5 97 18 112/56 94 02/02/17 07:30 97.7 89 20 139/65 95 02/02/17 02:00 97.8 84 18 116/64 96 02/01/17 20:34 98.6 91 18 124/60 95 01/31/17 20:00 97.8 76 18 116/58 98 Vital Signs Date Time Temp Pulse Resp B/P Pulse Ox O2 Delivery O2 Flow Rate FiO2 02/03/17 14:51 97.9 78 18 119/62 95 02/03/17 08:18 Room Air Intake and Output 02/02/17 02/02/17 02/03/17 15:00 23:00 07:00 Intake Total 620 ml 240 ml Balance 620 ml 240 ml Exam Constitutional: alert, frail, obese, oriented Respiratory: clear to auscultation, normal air movement Cardiovascular: murmurs/extra sounds, nl pulses, regular rate and rhythm, No edema, No rub Gastrointestinal: bowel sounds, nl liver, spleen, non-tender, soft, No mass, No rebound or guarding Musculoskeletal: nl extremities to inspection Extremities: normal pulses, No clubbing, No cyanosis, No edema Neurological: INVENTORY CONTROL/SHIPPING RECEIVING II-XII intact, nl mental status, nl speech, nl strength Results Result Diagram: 01/31/17 0649 01/31/17 0649 Medications Medications Current Medications Acetaminophen/ Hydrocodone Bitart ([place] (10/325)) 1 tab Q4H PRN PO PAIN LEVEL 1-5 Last administered on 01/31/17 11:43; Admin Dose 1 TAB; Start 01/30/17 at 19: 43 Acetaminophen/ Hydrocodone Bitart ([place] (10/325)) 2 tab Q4H PRN PO PAIN LEVEL 6-10 Last administered on 02/03/17 13:34; Admin Dose 2 TAB; Start 01/30/17 at 19 :43 Hydromorphone HCl (Dilaudid) 0.2 mg Q1H PRN IV BREAKTHROUGH PAIN Last administered on 02/01/17 09:45; Admin Dose 0.2 MG; Start 01/30/17 at 19:43 Ondansetron HCl (Zofran Inj) 4 mg Q6H PRN IV NAUSEA AND/OR VOMITING; Start 01/30 at 19:43 Bisacodyl (Dulcolax Supp) 10 mg DAILY PRN [place] CONSTIPATION; Start 01/30/17 at 19: 43 Docusate Sodium (Colace) 100 mg BID PO Last administered on 02/03/17 08:26; Admin Dose 100 MG; Start 01/30/17 at 19:43 Al Hydrox/Mg Hydrox/Simethicone (Mag-Al Plus) 15 ml Q6H PRN PO CONSTIPATION/ DYSPEPSIA; Start 01/30/17 at 19:43 Acetaminophen (Tylenol Tab) 650 mg Q4H PRN PO RICHTER OR TEMP GREATER THAN 101.3F; Start 01/30/17 at 19:43 Cyclobenzaprine HCl (Flexeril) 5 mg TID PRN PO MUSCLE SPASMS Last administered on 02/03/17 08:28; Admin Dose 5 MG; Start 01/30/17 at 19:43 Phenol (Cepastat Lozenge) 1 lozenge PRN PRN [place] SORE THROAT; Start 01/30/17 at 19 :43 Diphenhydramine HCl (Benadryl) 25 mg Q6H PRN PO ITCHING; Start 01/30/17 at 19:43 Diphenhydramine HCl (Benadryl) 25 mg Q6H PRN IV ITCHING; Start 01/30/17 at 19:43 Naloxone HCl (Narcan) 0.2 mg Q2M PRN IV RR 8 BREATHS/MIN OR LESS; Start at 19:43 Bupropion HCl (Wellbutrin Xl) 150 mg DAILY PO Last administered on 02/03/17 08 :26; Admin Dose 150 MG; Start 01/30/17 at 19:43 Lorazepam (Ativan) 2 mg BID PRN PO ANXIETY Last administered on 02/03/17 17:31 ; Admin Dose 2 MG; Start 01/30/17 at 19:43 Metoprolol Succinate (Toprol Xl) 25 mg DAILY PO Last administered on 02/03/17 08:28; Admin Dose 25 MG; Start 01/30/17 at 19:43 Atorvastatin Calcium (Lipitor) 10 mg DAILY@21 PO Last administered on 20:07; Admin Dose 10 MG; Start 01/30/17 at 19:43 Pantoprazole (Protonix Tab) 40 mg DAILY@06 PO Last administered on 02/03/17 06 :30; Admin Dose 40 MG; Start 01/30/17 at 19:43 Calcium Carbonate (Tums) 500 mg QID PRN PO HEARTBURN; Start 01/30/17 at 19:43 Senna (Senokot) 1 tab DAILY@21 PO ; Start 01/31/17 at 21:00 Lactulose (Enulose) 20 gm DAILY PRN PO CONSTIPATION Last administered on 11:43; Admin Dose 20 GM; Start 01/31/17 at 10:30 Magnesium Hydroxide (Milk Of Mag) 30 ml DAILY PRN PO CONSTIPATION; Start at 10:30 Trimethoprim/ Sulfamethoxazole (Bactrim (Ds)) 1 tab BID PO Last administered on 02/03/17t 08:27; Admin Dose 1 TAB; Start 02/02/17 at 11:00; Stop 02/05/17 at 10:59 WALTER MELISSA MD Feb 03, 2017 18:53
[2017-02-03 20:00] VITALS: BP 105/52; RESP 18
[2017-02-03] MEDS: SENNA TAB PO SCH (22:00)
[2017-02-03] MEDS: ATORVASTATIN 10 MG TAB PO SCH (22:05)
[2017-02-03] MEDS: DICLOFENAC SODIUM 1% GEL 100 GM TUBE TP SCH (22:05)
[2017-02-04 02:00] VITALS: BP 118/61; RESP 18
[2017-02-04] MEDS: PANTOPRAZOLE (EC) 40 MG TAB PO SCH (06:29)
[2017-02-04] MEDS: LEVOTHYROXINE 100 MCG TAB PO SCH (06:29)
[2017-02-04] MEDS: HYDROCODONE/APAP (10/325) TAB PO PRN ×3 (07:31→20:31)
[2017-02-04] MEDS: BUPROPION (XL) 150 MG TAB PO SCH (08:50)
[2017-02-04] MEDS: TRIMETHOPRIM/SULFAMETHOX (DS) TAB PO SCH ×2 (08:50→20:30)
[2017-02-04] MEDS: DICLOFENAC SODIUM 1% GEL 100 GM TUBE TP SCH ×4 (08:50→20:30)
[2017-02-04] MEDS: DOCUSATE SODIUM 100 MG CAP PO SCH ×2 (08:50→20:29)
[2017-02-04] MEDS: METOPROLOL (XL) 25 MG TAB PO SCH (09:00)
[2017-02-04 09:14] VITALS: BP 175/54; PULSE 78; RESP 20
--- NOTE | 2017-02-04 12:26 | CONS ---
Date/Time of Note Date/Time of Note DATE: 02/04/17 TIME: 12:25 Consult Date/Type/Reason Admit Date/Time Jan 30, 2017 at 18:00 Subjective Comfortable Objective pulm-cta min assist 120 feet Vital Signs Date Time Temp Pulse Resp B/P Pulse Ox O2 Delivery O2 Flow Rate FiO2 02/04/17 09:14 98.3 78 20 175/54 96 Room Air Intake and Output 02/03/17 02/03/17 02/04/17 15:00 23:00 07:00 Intake Total 240 ml 890 ml Output Total 300 ml Balance 240 ml 590 ml Results/Medications Result Diagram: 01/31/17 0649 01/31/17 0649 Medications Current Medications Acetaminophen/ Hydrocodone Bitart ([place] (10/325)) 1 tab Q4H PRN PO PAIN LEVEL 1-5 Last administered on 01/31/17 11:43; Admin Dose 1 TAB; Start 01/30/17 at 19: 43 Acetaminophen/ Hydrocodone Bitart ([place] (10/325)) 2 tab Q4H PRN PO PAIN LEVEL 6-10 Last administered on 02/04/17 12:11; Admin Dose 2 TAB; Start 01/30/17 at 19 :43 Hydromorphone HCl (Dilaudid) 0.2 mg Q1H PRN IV BREAKTHROUGH PAIN Last administered on 02/01/17 09:45; Admin Dose 0.2 MG; Start 01/30/17 at 19:43 Ondansetron HCl (Zofran Inj) 4 mg Q6H PRN IV NAUSEA AND/OR VOMITING; Start 01/30 at 19:43 Bisacodyl (Dulcolax Supp) 10 mg DAILY PRN [place] CONSTIPATION; Start 01/30/17 at 19: 43 Docusate Sodium (Colace) 100 mg BID PO Last administered on 02/04/17 08:50; Admin Dose 100 MG; Start 01/30/17 at 19:43 Al Hydrox/Mg Hydrox/Simethicone (Mag-Al Plus) 15 ml Q6H PRN PO CONSTIPATION/ DYSPEPSIA; Start 01/30/17 at 19:43 Acetaminophen (Tylenol Tab) 650 mg Q4H PRN PO RICHTER OR TEMP GREATER THAN 101.3F; Start 01/30/17 at 19:43 Cyclobenzaprine HCl (Flexeril) 5 mg TID PRN PO MUSCLE SPASMS Last administered on 02/03/17 08:28; Admin Dose 5 MG; Start 01/30/17 at 19:43 Phenol (Cepastat Lozenge) 1 lozenge PRN PRN [place] SORE THROAT; Start 01/30/17 at 19 :43 Diphenhydramine HCl (Benadryl) 25 mg Q6H PRN PO ITCHING; Start 01/30/17 at 19:43 Diphenhydramine HCl (Benadryl) 25 mg Q6H PRN IV ITCHING; Start 01/30/17 at 19:43 Naloxone HCl (Narcan) 0.2 mg Q2M PRN IV RR 8 BREATHS/MIN OR LESS; Start at 19:43 Bupropion HCl (Wellbutrin Xl) 150 mg DAILY PO Last administered on 02/04/17 08 :50; Admin Dose 150 MG; Start 01/30/17 at 19:43 Lorazepam (Ativan) 2 mg BID PRN PO ANXIETY Last administered on 02/03/17 17:31 ; Admin Dose 2 MG; Start 01/30/17 at 19:43 Metoprolol Succinate (Toprol Xl) 25 mg DAILY PO Last administered on 02/03/17 08:28; Admin Dose 25 MG; Start 01/30/17 at 19:43 Atorvastatin Calcium (Lipitor) 10 mg DAILY@21 PO Last administered on 22:05; Admin Dose 10 MG; Start 01/30/17 at 19:43 Pantoprazole (Protonix Tab) 40 mg DAILY@06 PO Last administered on 02/04/17 06 :29; Admin Dose 40 MG; Start 01/30/17 at 19:43 Calcium Carbonate (Tums) 500 mg QID PRN PO HEARTBURN; Start 01/30/17 at 19:43 Senna (Senokot) 1 tab DAILY@21 PO ; Start 01/31/17 at 21:00 Lactulose (Enulose) 20 gm DAILY PRN PO CONSTIPATION Last administered on 11:43; Admin Dose 20 GM; Start 01/31/17 at 10:30 Magnesium Hydroxide (Milk Of Mag) 30 ml DAILY PRN PO CONSTIPATION; Start at 10:30 Trimethoprim/ Sulfamethoxazole (Bactrim (Ds)) 1 tab BID PO Last administered on 02/04/17 08:50; Admin Dose 1 TAB; Start 02/02/17 at 11:00; Stop 02/05/17 at 10:59 Diclofenac Sodium (Voltaren 1% Gel) 4 gm QID TP Last administered on 02/04/17 12:12; Admin Dose 4 GM; Start 02/03/17 at 21:00 Assessment/Plan Additional Assessment/Plan Rehab -lumbar spinal radiculopathy and anterolisthesis status post decompressive laminectomy. Continue rehab treatment plan Hyperlipidemia. Acute pain syndrome-continue current medication Anxiety. Hypothyroidism. Gastroesophageal reflux disease. Hypertension. 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 History of total knee replacements bilaterally. ALEIDA CLEMENT MD Feb 04, 2017 12:26
[2017-02-04 15:33] VITALS: BP 123/72; RESP 18
[2017-02-04 20:00] VITALS: BP 123/60; RESP 18
[2017-02-04] MEDS: ATORVASTATIN 10 MG TAB PO SCH (20:29)
[2017-02-04] MEDS: SENNA TAB PO SCH (20:30)
[2017-02-04] MEDS: LORAZEPAM 1 MG TAB PO PRN (20:31)
[2017-02-05 02:00] VITALS: BP 117/63; RESP 18
[2017-02-05] MEDS: HYDROCODONE/APAP (10/325) TAB PO PRN ×2 (06:34→12:22)
[2017-02-05] MEDS: PANTOPRAZOLE (EC) 40 MG TAB PO SCH (06:34)
[2017-02-05] MEDS: LEVOTHYROXINE 100 MCG TAB PO SCH (06:34)
[2017-02-05 07:30] VITALS: BP 158/67; RESP 18
[2017-02-05] MEDS: METOPROLOL (XL) 25 MG TAB PO SCH (08:33)
[2017-02-05] MEDS: DOCUSATE SODIUM 100 MG CAP PO SCH ×2 (08:33→21:10)
[2017-02-05] MEDS: BUPROPION (XL) 150 MG TAB PO SCH (08:33)
[2017-02-05] MEDS: DICLOFENAC SODIUM 1% GEL 100 GM TUBE TP SCH ×4 (08:34→21:10)
[2017-02-05] MEDS: TRIMETHOPRIM/SULFAMETHOX (DS) TAB PO SCH (08:51)
[2017-02-05] MEDS: LORAZEPAM 1 MG TAB PO PRN (12:22)
[2017-02-05] MEDS: NEOMYC/POLYMYX/BACIT 30 GM OINT TOP SCH (13:47)
[2017-02-05 14:00] VITALS: BP 112/57; RESP 18
[2017-02-05 20:00] VITALS: BP 128/58; PULSE 80; RESP 18
[2017-02-05] MEDS: ATORVASTATIN 10 MG TAB PO SCH (21:10)
[2017-02-05] MEDS: SENNA TAB PO SCH (21:10)
[2017-02-06 02:00] VITALS: BP 124/65; RESP 18
[2017-02-06] MEDS: PANTOPRAZOLE (EC) 40 MG TAB PO SCH (06:03)
[2017-02-06] MEDS: LEVOTHYROXINE 100 MCG TAB PO SCH (06:03)
[2017-02-06 08:00] VITALS: BP 147/65; PULSE 85; RESP 20
[2017-02-06] MEDS: BUPROPION (XL) 150 MG TAB PO SCH (08:17)
[2017-02-06] MEDS: DOCUSATE SODIUM 100 MG CAP PO SCH ×2 (08:17→20:49)
[2017-02-06] MEDS: METOPROLOL (XL) 25 MG TAB PO SCH (08:18)
[2017-02-06] MEDS: DICLOFENAC SODIUM 1% GEL 100 GM TUBE TP SCH ×4 (08:19→20:49)
[2017-02-06] MEDS: NEOMYC/POLYMYX/BACIT 30 GM OINT TOP SCH (08:20)
[2017-02-06] MEDS: HYDROCODONE/APAP (10/325) TAB PO PRN ×3 (09:39→23:57)
--- NOTE | 2017-02-06 13:45 | CONS ---
Date/Time of Note Date/Time of Note DATE: 02/06/17 TIME: 13:44 Consult Date/Type/Reason Admit Date/Time Jan 30, 2017 at 18:00 Subjective Doing very well. Objective pulm-cta abd-soft sba ambulation Vital Signs Date Time Temp Pulse Resp B/P Pulse Ox O2 Delivery O2 Flow Rate FiO2 02/06/17 08:00 98.7 85 20 147/65 95 Room Air Intake and Output 02/05/17 02/05/17 02/06/17 15:00 23:00 07:00 Intake Total 1060 ml 1020 ml Output Total 1100 ml Balance 1060 ml -80 ml Results/Medications Medications Current Medications Acetaminophen/ Hydrocodone Bitart ([place] (10/325)) 1 tab Q4H PRN PO PAIN LEVEL 1-5 Last administered on 01/31/17 11:43; Admin Dose 1 TAB; Start 01/30/17 at 19: 43 Acetaminophen/ Hydrocodone Bitart ([place] (10/325)) 2 tab Q4H PRN PO PAIN LEVEL 6-10 Last administered on 02/06/17 09:39; Admin Dose 2 TAB; Start 01/30/17 at 19 :43 Hydromorphone HCl (Dilaudid) 0.2 mg Q1H PRN IV BREAKTHROUGH PAIN Last administered on 02/01/17 09:45; Admin Dose 0.2 MG; Start 01/30/17 at 19:43 Ondansetron HCl (Zofran Inj) 4 mg Q6H PRN IV NAUSEA AND/OR VOMITING; Start 01/30 at 19:43 Bisacodyl (Dulcolax Supp) 10 mg DAILY PRN [place] CONSTIPATION; Start 01/30/17 at 19: 43 Docusate Sodium (Colace) 100 mg BID PO Last administered on 02/06/17 08:17; Admin Dose 100 MG; Start 01/30/17 at 19:43 Al Hydrox/Mg Hydrox/Simethicone (Mag-Al Plus) 15 ml Q6H PRN PO CONSTIPATION/ DYSPEPSIA; Start 01/30/17 at 19:43 Acetaminophen (Tylenol Tab) 650 mg Q4H PRN PO RICHTER OR TEMP GREATER THAN 101.3F; Start 01/30/17 at 19:43 Cyclobenzaprine HCl (Flexeril) 5 mg TID PRN PO MUSCLE SPASMS Last administered on 02/03/17 08:28; Admin Dose 5 MG; Start 01/30/17 at 19:43 Phenol (Cepastat Lozenge) 1 lozenge PRN PRN [place] SORE THROAT; Start 01/30/17 at 19 :43 Diphenhydramine HCl (Benadryl) 25 mg Q6H PRN PO ITCHING; Start 01/30/17 at 19:43 Diphenhydramine HCl (Benadryl) 25 mg Q6H PRN IV ITCHING; Start 01/30/17 at 19:43 Naloxone HCl (Narcan) 0.2 mg Q2M PRN IV RR 8 BREATHS/MIN OR LESS; Start at 19:43 Bupropion HCl (Wellbutrin Xl) 150 mg DAILY PO Last administered on 02/06/17 08 :17; Admin Dose 150 MG; Start 01/30/17 at 19:43 Lorazepam (Ativan) 2 mg BID PRN PO ANXIETY Last administered on 02/05/17 12:22 ; Admin Dose 2 MG; Start 01/30/17 at 19:43 Metoprolol Succinate (Toprol Xl) 25 mg DAILY PO Last administered on 02/06/17 08:18; Admin Dose 25 MG; Start 01/30/17 at 19:43 Atorvastatin Calcium (Lipitor) 10 mg DAILY@21 PO Last administered on 21:10; Admin Dose 10 MG; Start 01/30/17 at 19:43 Pantoprazole (Protonix Tab) 40 mg DAILY@06 PO Last administered on 02/06/17 06 :03; Admin Dose 40 MG; Start 01/30/17 at 19:43 Calcium Carbonate (Tums) 500 mg QID PRN PO HEARTBURN; Start 01/30/17 at 19:43 Senna (Senokot) 1 tab DAILY@21 PO Last administered on 02/05/17 21:10; Admin Dose 1 TAB; Start 01/31/17 at 21:00 Lactulose (Enulose) 20 gm DAILY PRN PO CONSTIPATION Last administered on 11:43; Admin Dose 20 GM; Start 01/31/17 at 10:30 Magnesium Hydroxide (Milk Of Mag) 30 ml DAILY PRN PO CONSTIPATION; Start at 10:30 Diclofenac Sodium (Voltaren 1% Gel) 4 gm QID TP Last administered on 02/06/17 13:32; Admin Dose 4 GM; Start 02/03/17 at 21:00 Neomycin/ Polymyxin/ Bacitracin (Neosporin Topical Oint) 1 applic DAILY TOP Last administered on 02/06/17 08:20; Admin Dose 1 APPLIC; Start 02/05/17 at 12: 00 Assessment/Plan Additional Assessment/Plan Rehab -lumbar spinal radiculopathy and anterolisthesis status post decompressive laminectomy. Continue rehab treatment plan, anticipate dc tomorrow Hyperlipidemia. Acute pain syndrome-improved Anxiety Hypothyroidism. Gastroesophageal reflux disease. Hypertension. 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 History of total knee replacements bilaterally. ALEIDA CLEMENT MD Feb 06, 2017 13:45
--- NOTE | 2017-02-06 14:09 | PN ---
Date/Time of Note Date/Time of Note DATE: 02/06/17 TIME: 14:04 Assessment/Plan VTE Prophylaxis VTE Prophylaxis Intervention: heparin Lines/Catheters IV Catheter Type (from Nrs): Saline Lock Urinary Cath still in place: No Assessment/Plan Problems: (1) Aftercare following surgery Status: Acute Comment: Patient has progressed nicely under Acute Rehab. Plan for home therapy (2) Type 2 diabetes mellitus with other specified complication Status: Chronic Comment: Adequate control Qualifiers: Diabetes mellitus buttermaker insulin use: without detention use Qualified Code: E11.69 - Type 2 diabetes mellitus with other specified complication, without long-term current use of insulin (3) Gastro-esophageal reflux disease without esophagitis Status: Chronic Comment: Cot[place] (4) Hypothyroidism Status: Chronic Comment: Stable on replacement Qualifiers: Hypothyroidism type: acquired Qualified Code: E03.9 - Acquired hypothyroidism (5) Anxiety disorder Status: Chronic Comment: Controlled on medicines Qualifiers: Anxiety disorder type: generalized anxiety disorder Qualified Code: F41.1 - Generalized anxiety disorder (6) 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 She reports that she is anxious to be discharged continue her outpatient limitation Constitutional: no complaints Respiratory: no complaints Cardiovascular: no complaints Gastrointestinal: no complaints Exam/Review of Systems Vital Signs Vitals Vital Signs Date Time Temp Pulse Resp B/P Pulse Ox O2 Delivery O2 Flow Rate FiO2 02/06/17 08:00 98.7 85 20 147/65 95 Room Air Intake and Output 02/05/17 02/05/17 02/06/17 15:00 23:00 07:00 Intake Total 1060 ml 1020 ml Output Total 1100 ml Balance 1060 ml -80 ml Exam Constitutional: alert, oriented Neck: non-tender, supple Respiratory: clear to auscultation, normal air movement Medications Medications Current Medications Acetaminophen/ Hydrocodone Bitart ([place] (10/325)) 1 tab Q4H PRN PO PAIN LEVEL 1-5 Last administered on 01/31/17 11:43; Admin Dose 1 TAB; Start 01/30/17 at 19: 43 Acetaminophen/ Hydrocodone Bitart ([place] (10/325)) 2 tab Q4H PRN PO PAIN LEVEL 6-10 Last administered on 02/06/17 09:39; Admin Dose 2 TAB; Start 01/30/17 at 19 :43 Hydromorphone HCl (Dilaudid) 0.2 mg Q1H PRN IV BREAKTHROUGH PAIN Last administered on 02/01/17 09:45; Admin Dose 0.2 MG; Start 01/30/17 at 19:43 Ondansetron HCl (Zofran Inj) 4 mg Q6H PRN IV NAUSEA AND/OR VOMITING; Start 01/30 at 19:43 Bisacodyl (Dulcolax Supp) 10 mg DAILY PRN [place] CONSTIPATION; Start 01/30/17 at 19: 43 Docusate Sodium (Colace) 100 mg BID PO Last administered on 02/06/17 08:17; Admin Dose 100 MG; Start 01/30/17 at 19:43 Al Hydrox/Mg Hydrox/Simethicone (Mag-Al Plus) 15 ml Q6H PRN PO CONSTIPATION/ DYSPEPSIA; Start 01/30/17 at 19:43 Acetaminophen (Tylenol Tab) 650 mg Q4H PRN PO RICHTER OR TEMP GREATER THAN 101.3F; Start 01/30/17 at 19:43 Cyclobenzaprine HCl (Flexeril) 5 mg TID PRN PO MUSCLE SPASMS Last administered on 02/03/17 08:28; Admin Dose 5 MG; Start 01/30/17 at 19:43 Phenol (Cepastat Lozenge) 1 lozenge PRN PRN MT SORE THROAT; Start 01/30/17 at 19 :43 Diphenhydramine HCl (Benadryl) 25 mg Q6H PRN PO ITCHING; Start 01/30/17 at 19:43 Diphenhydramine HCl (Benadryl) 25 mg Q6H PRN IV ITCHING; Start 01/30/17 at 19:43 Naloxone HCl (Narcan) 0.2 mg Q2M PRN IV RR 8 BREATHS/MIN OR LESS; Start at 19:43 Bupropion HCl (Wellbutrin Xl) 150 mg DAILY PO Last administered on 02/06/17 08 :17; Admin Dose 150 MG; Start 01/30/17 at 19:43 Lorazepam (Ativan) 2 mg BID PRN PO ANXIETY Last administered on 02/05/17 12:22 ; Admin Dose 2 MG; Start 01/30/17 at 19:43 Metoprolol Succinate (Toprol Xl) 25 mg DAILY PO Last administered on 02/06/17 08:18; Admin Dose 25 MG; Start 01/30/17 at 19:43 Atorvastatin Calcium (Lipitor) 10 mg DAILY@21 PO Last administered on 21:10; Admin Dose 10 MG; Start 01/30/17 at 19:43 Pantoprazole (Protonix Tab) 40 mg DAILY@06 PO Last administered on 02/06/17 06 :03; Admin Dose 40 MG; Start 01/30/17 at 19:43 Calcium Carbonate (Tums) 500 mg QID PRN PO HEARTBURN; Start 01/30/17 at 19:43 Senna (Senokot) 1 tab DAILY@21 PO Last administered on 02/05/17 21:10; Admin Dose 1 TAB; Start 01/31/17 at 21:00 Lactulose (Enulose) 20 gm DAILY PRN PO CONSTIPATION Last administered on 11:43; Admin Dose 20 GM; Start 01/31/17 at 10:30 Magnesium Hydroxide (Milk Of Mag) 30 ml DAILY PRN PO CONSTIPATION; Start at 10:30 Diclofenac Sodium (Voltaren 1% Gel) 4 gm QID TP Last administered on 02/06/17 13:32; Admin Dose 4 GM; Start 02/03/17 at 21:00 Neomycin/ Polymyxin/ Bacitracin (Neosporin Topical Oint) 1 applic DAILY TOP Last administered on 02/06/17 08:20; Admin Dose 1 APPLIC; Start 02/05/17 at 12: 00 DIGNA LEWIS MD Feb 06, 2017 14:09
[2017-02-06 16:15] VITALS: BP 113/54; RESP 19
[2017-02-06 20:00] VITALS: BP 125/57; RESP 18
[2017-02-06] MEDS: SENNA TAB PO SCH (20:49)
[2017-02-06] MEDS: ATORVASTATIN 10 MG TAB PO SCH (20:49)
[2017-02-07 03:51] VITALS: BP_SYST 127; BP_SYST 128; BP_DIAS 61; BP_DIAS 63; RESP 18
[2017-02-07] MEDS: PANTOPRAZOLE (EC) 40 MG TAB PO SCH (06:03)
[2017-02-07] MEDS: LEVOTHYROXINE 100 MCG TAB PO SCH (06:04)
[2017-02-07 07:30] VITALS: BP 144/65; RESP 18
--- NOTE | 2017-02-07 09:41 | RADRPT ---
PROCEDURE: Lumbar spine radiographs CLINICAL INDICATION: Fall. COMPARISON: Radiograph from 01/27/2017. TECHNIQUE: AP, lateral, and coned-down L5-S1 views. FINDINGS: The L4-L5 and L5-S1 articulations are partially obscured by overlying soft tissue and bone. Alignment is anatomic. The usual lumbar lordosis is accentuated. 10% height loss of the T11 and T12 vertebral bodies, unchanged from 01/27/2017. Moderate lateral and anterior endplate spurring at L1-L2 and L2-L3. Marked proliferative changes in the posterior elements between L2-L3 and L5-S1. Aortoiliac arterial calcifications. Total hip arthroplasties. IMPRESSION: 1. No acute fracture or subluxation. 2. Marked degenerative changes in the lumbar spine. If there is high clinical suspicion for traumatic injury, CT or MRI is recommended because they are more sensitive examinations, and will better characterize the L4-L5 and L5-S1 articulations. RPTAT: [facility] Physician Rosalind Date Time Electronically viewed and signed by Physician Rosalind on 02/07/2017 09:41 LG/
[2017-02-07] MEDS: DOCUSATE SODIUM 100 MG CAP PO SCH (09:58)
[2017-02-07] MEDS: BUPROPION (XL) 150 MG TAB PO SCH (09:58)
[2017-02-07] MEDS: METOPROLOL (XL) 25 MG TAB PO SCH (09:59)
[2017-02-07] MEDS: NEOMYC/POLYMYX/BACIT 30 GM OINT TOP SCH (10:00)
[2017-02-07] MEDS: DICLOFENAC SODIUM 1% GEL 100 GM TUBE TP SCH (10:03)
--- NOTE | 2017-02-07 10:36 | DS ---
Date/Time of Note Date/Time of Note DATE: 02/07/17 TIME: 10:34 Discharge Summary Admission/Discharge Info Admit Date/Time Jan 30, 2017 at 18:00 Discharge Date/Time Discharge Diagnosis 1. Lumbar spinal radiculopathy and anterolisthesis status post decompressive laminectomy. 2. Acute pain syndrome. 3. Anxiety. 4. Hypothyroidism. 5. Gastroesophageal reflux disease. 6. Hypertension. 7. 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 8. History of total knee replacements bilaterally. 9. Improvements in self-care and mobility. Patient Condition: Good Hospital Course DISCHARGE Patient was admitted for comprehensive interdisciplinary acute rehabilitation. Patient made steady functional gains and improved from a mod/max level to a Supervised level for self care and mobility, including ambulating over 150 feet with the use of a front wheeled walker. last night patient had a fall while turning in the bathroom. She denies any focal pain, and is adament regarding dc home today. LS xray negative for any acute changes. Patient is being discharged home with recommendations for home health PT and OT follow up. DME recommendations: FWW; [facility]; Shower Chair Patient will follow up with PMD nd spine surgeon upon DC. Home Meds Reported Medications Acetaminophen with Codeine (Acetaminophen-Cod #3 Tablet) 1 Each Tablet, 1 TAB PO BID, #7 TAB 01/27/17 [Nexim] No Conflict Check, 223 PO DAILY 07/04/15 Metoprolol Succinate* (Toprol XL*) 25 Mg Tab.sr.24h, 25 MG PO DAILY, #30 TAB 07/04/15 Nifedipine* (Nifedipine ER*) 60 Mg Tablet.sa, 60 MG PO DAILY, TAB.SA 07/04/15 Pravastatin Sodium* (Pravastatin Sodium*) 40 Mg Tablet, 50 MG PO HS, TAB 07/04/15 Bupropion Hcl* (Bupropion XL*) 150 Mg Tab.er.24h, 150 MG PO DAILY, TAB.SA 07/04/15 Lorazepam* (Lorazepam*) 1 Mg Tablet, 2 MG PO BID Y for ANXIETY, #30 TAB 07/04/15 Levothyroxine Sodium* (Levothyroxine Sodium*) 100 Mcg Tablet, 100 MCG PO BEFORE BREAKFAST, #30 TAB 07/04/15 [Red Rice Yeast] No Conflict Check, 120 MG PO QHS 07/28/13 Primary Care Provider MD RACQUEL Bishop LIVA L. MD Feb 07, 2017 10:36
== END 2017-02-07 10:30 | disposition home health service (06) | DRG 560 ==
LOC: VRC 18:00
PROVIDERS: ADMIT Physical Medicine & Rehabilitation; ATTEND Internal Medicine
DX: Z47.89 Encounter for other orthopedic aftercare (principal); N39.0 Urinary tract infection, site not specified; E11.8 Type 2 diabetes mellitus with unspecified complications; F33.9 Major depressive disorder, recurrent, unspecified; I10 Essential (primary) hypertension; E78.5 Hyperlipidemia, unspecified; E03.9 Hypothyroidism, unspecified; F41.9 Anxiety disorder, unspecified; M54.30 Sciatica, unspecified side; Z91.81 History of falling; K21.9 Gastro-esophageal reflux disease without esophagitis; M25.562 Pain in left knee; M25.561 Pain in right knee
CPT/HCPCS: 72100; 80053; 81003; 85025; 87081; 87086; 97110; 97112; 97116; 97150; 97162; 97166; 97530; 97535; J1170

== ENCOUNTER 2017-07-06 13:14 | Inpatient (IN) | END 2017-07-12 20:21 | disposition home health service (06) | DRG 638 ==

== ENCOUNTER 2017-08-05 22:56 | Inpatient (IN) | END 2017-08-10 20:28 | disposition home health service (06) | DRG 246 ==